=== PATIENT | male | born 1985 | race Caucasian/White ===

== ENCOUNTER 2018-06-19 13:28 | Inpatient (IN) | payer OTHER ==
[~2018-06-19] VITALS: Ht 185.4 cm; Wt 88.6 kg
[~2018-06-19 13:28] MED LIST: BUPRENORPHIN-N1 EACH SL; CITA20 PO; Cleocin HCl150 MG PO; Doxycycline Hy100 MG PO; LEVE500 PO
[2018-06-19] MEDS ORDERED: GABA300 PO (13:46)
[2018-06-19] MEDS ORDERED: CLON.1 PO (13:48)
[2018-06-19] MEDS ORDERED: THERA1 EACH PO (13:54)
[2018-06-19] MEDS ORDERED: FOLI400 PO (13:54)
[2018-06-19] MEDS ORDERED: MELATONIN5 M1 PO (13:55)
[2018-06-19] MEDS ORDERED: CHLO25 PO (13:57)
[2018-06-19] MEDS ORDERED: LORA1 PO (13:58)
[2018-06-19 14:43] LABS: BASOPHILS ABSOLUTE AUTO 0.04 K/mm3 (0.00-0.23); BASOPHILS PERCENT AUTO 0 % (0-2); EOSINOPHILS ABSOLUTE AUTO 0.08 K/mm3 (0.00-0.68); EOSINOPHILS PERCENT AUTO 1 % (0-6); Hematocrit 43.1 % (37.0-53.0); Hemoglobin 14.6 g/dL (13.5-17.5); IMMATURE GRAN ABSOLUTE AUTO 0.11 K/mm3 (0.00-0.10); IMMATURE GRAN PERCENT AUTO 1 % (0-1); LYMPHOCYTES ABSOLUTE AUTO 1.23 K/mm3 (0.84-5.20); LYMPHOCYTES PERCENT AUTO 10 % (21-46); MONOCYTES PERCENT AUTO 4 % (4-13); Mean Corpuscular HGB 33.1 pg (26.0-34.0); Mean Corpuscular HGB Conc 33.9 g/dL (31.5-36.5); Mean Corpuscular Volume 98 fL (80-100); Mean Platelet Volume 10.5 fL (9.1-12.4); NEUTROPHILS ABSOLUTE AUTO 10.14 K/mm3 (1.96-9.15); NEUTROPHILS PERCENT AUTO 84 % (41-73); Platelet Count 301 K/mm3 (150-400); RDW Coefficient Variation 13.3 % (11.7-14.2); RDW Standard Deviation 47.9 fL (35.1-46.3); Red Blood Cell Count 4.41 M/mm3 (4.30-5.90)
[2018-06-19 14:51] LABS: Alanine Aminotransfer (ALT/SGP 29 U/L (12-78); Albumin, Blood 3.7 g/dL (3.4-5.0); Alk Phos 71 U/L (50-136); Anion Gap 6 mmol/L (6-16); Aspartate Aminotrans (AST/SGOT 23 U/L (12-37); Bilirubin, Total 0.9 mg/dL (0.1-1.0); Blood Urea Nitrogen 12 mg/dL (8-24); Bun/Creatinine Ratio 16.6 (12.0-20.0); CO2, Blood 28 mmol/L (21-32); Calcium, Blood 9.2 mg/dL (8.5-10.1); Chloride, Blood 106 mmol/L (98-108); Creatinine, Blood 0.72 mg/dL (0.60-1.20); Globulin, Blood 3.7 g/dL (2.2-4.0); Glomerular Filtration Rate >60 (60-); Glucose, Blood 179 mg/dL (70-99); Magnesium, Blood 2.1 mg/dL (1.6-2.4); Potassium, Blood 4.2 mmol/L (3.5-5.5); Sodium, Blood 140 mmol/L (136-145); Total Protein, Blood 7.4 g/dL (6.4-8.2)
--- NOTE | 2018-06-19 18:15 | NUR ---
ADMIT: PT ARRIVED TO ICU, ALERT, ORIENTED TO PERSON AND TIME, PLACE WITH HARD THINKING. PT HAS VERY SPORADIC MOVEMENTS, REPEATEDLY SITTING UP SUDDENLY OR HIS ARMS JERKING BUT WAS ALERT AT THAT TIME. RIGHT BEFORE PLACING A POWERGLIDE PT HAD A SEIZURE FOR ABOUT 15 SECONDS WITH FULL BODY CONVULSIONS, MORE ATIVAN GIVEN. PT WAS POST ICTAL FOR ABOUT 5 MINUTES AFTER BUT THEN CAME BACK AROUND AND RESUMED THE PREVIOUS SPORADIC MOVEMENTS. POWERGLIDE WAS PLACED, BUT PT KEEPS TRYING TO GET OUT OF BED, THRASHING HIS BODY, BANGING HSI HEAD. PT IS VERY PLEASANT AND DOESN'T SEEM TO BE ABLE TO CONTROL HIS BODY MOVEMENTS. ORDER FOR PRECEDEX RECEIVED FROM DR. TREJO TO TRY AND HELP CONTROL PT'S MOVEMENTS, BUT PT WAS STARTING TO PULL AT ALL OF HIS CORDS AND IVS, TRYING TO BITE THEM THINKING THEY WERE FOOD. PT PLACED IN TOUGH CUFFS, WRIST RESTRAINTS BECAUSE HE IS VERY STRONG AND WOULD RIP THROUGH THE SOFT RESTRAINTS. NOW WITH ATIVAN AND PRECEDEX PT APPEARS GROGGY, BUT IS STILL MOVING CONSTANTLY IN THE BED WITH SOME SPORADIC MOVEMENTS. DR. YODER INFORMED OF CONSULT.
[2018-06-19 18:16] LABS: BASOPHILS ABSOLUTE AUTO 0.03 K/mm3 (0.00-0.23); BASOPHILS PERCENT AUTO 0 % (0-2); EOSINOPHILS ABSOLUTE AUTO 0.06 K/mm3 (0.00-0.68); EOSINOPHILS PERCENT AUTO 1 % (0-6); Hematocrit 39.8 % (37.0-53.0); Hemoglobin 13.5 g/dL (13.5-17.5); IMMATURE GRAN ABSOLUTE AUTO 0.05 K/mm3 (0.00-0.10); IMMATURE GRAN PERCENT AUTO 1 % (0-1); LYMPHOCYTES ABSOLUTE AUTO 1.65 K/mm3 (0.84-5.20); LYMPHOCYTES PERCENT AUTO 16 % (21-46); MONOCYTES ABSOLUTE AUTO 0.51 K/mm3 (0.16-1.47); MONOCYTES PERCENT AUTO 5 % (4-13); Mean Corpuscular HGB 32.8 pg (26.0-34.0); Mean Corpuscular HGB Conc 33.9 g/dL (31.5-36.5); Mean Corpuscular Volume 97 fL (80-100); Mean Platelet Volume 10.6 fL (9.1-12.4); NEUTROPHILS ABSOLUTE AUTO 7.95 K/mm3 (1.96-9.15); NEUTROPHILS PERCENT AUTO 78 % (41-73); Platelet Count 293 K/mm3 (150-400); RDW Coefficient Variation 13.2 % (11.7-14.2); RDW Standard Deviation 47.8 fL (35.1-46.3); Red Blood Cell Count 4.12 M/mm3 (4.30-5.90); White Blood Cell Count 10.25 K/mm3 (4.00-11.30)
[2018-06-19 18:38] LABS: Magnesium, Blood 2.1 mg/dL (1.6-2.4)
[2018-06-19 18:41] LABS: Amylase, Blood 32 U/L (25-115); Ethanol (Alcohol), Blood, Med <3 mg/dL
[2018-06-19 18:49] LABS: Alanine Aminotransfer (ALT/SGP 26 U/L (12-78); Albumin, Blood 3.5 g/dL (3.4-5.0); Alk Phos 66 U/L (50-136); Anion Gap 8 mmol/L (6-16); Aspartate Aminotrans (AST/SGOT 21 U/L (12-37); Bilirubin, Total 0.5 mg/dL (0.1-1.0); Blood Urea Nitrogen 12 mg/dL (8-24); Bun/Creatinine Ratio 14.6 (12.0-20.0); CO2, Blood 27 mmol/L (21-32); Calcium, Blood 8.8 mg/dL (8.5-10.1); Chloride, Blood 105 mmol/L (98-108); Creatinine, Blood 0.82 mg/dL (0.60-1.20); Globulin, Blood 3.5 g/dL (2.2-4.0); Glomerular Filtration Rate >60 (60-); Glucose, Blood 125 mg/dL (70-99); Phosphorus, Blood 3.6 mg/dL (2.5-4.9); Potassium, Blood 3.9 mmol/L (3.5-5.5); Sodium, Blood 140 mmol/L (136-145); Thyroid Stimulating Hormone 0.065 uIU/mL (0.360-4.800); Troponin I <0.015 ng/mL (0.000-0.040)
--- NOTE | 2018-06-19 19:05 | NUR ---
INTUBATE: DR. YODER HERE TO SEE PT. DESPITE PRECEDEX GTT AND ATIVAN PT IS STILL THRASHING IN BED, PULLING AT THE RESTRAINTS. HIS EYES ARE CLOSED NOW, BUT HE CONTINUES TO THRASH. PT'S HR HAS STARTED TO DECLINE WITH THE PRECEDEX WELL WITH IT NOW IN THE 50S. PRECEDEX STOPPED AND DECISION MADE WITH DR. YODER TO INTUBATE TO GET PT THROUGH THE WITHDRAWALS. RT NOTIFIED. PT GIVEN 10MG VERSED, 300MG PROPOFOL, AND 200MG SUCCINYLCHOLINE THROUGHOUT THE INTUBATION AND RIGHT AFTER. PT INTUBATED AT 1839 WITH 8.0 TUBE AND 25CM AT THE LIP. ORDER RECEIVED FROM DR. YODER TO PLACE PICC LINE. PICC PLACED BY HARPER ROACH. OG AND CATHETER PLACED PER DR. YODER. XR ORDERED TO CONFIRM PLACEMENT OF EVERYTHING. REPORT GIVEN TO HARPER GAUTHIER.
--- NOTE | 2018-06-19 19:11 | NUR ---
PT'S FATHER, DAMION, NOTIFIED OF INTUBATION. PT HAD GIVEN PERMISSION TO GIVE INFORMATION TO HIS PARENTS BEFORE HE WAS INTUBATED.
[2018-06-19 19:37] LABS: Source, Urine Catheter
[2018-06-19 19:52] LABS: Bilirubin, Urine Neg (Neg); Blood, Urine Neg (Neg); Glucose Qualitative, Urine Neg (Neg); Ketones, Urine 1+ (Neg); Leukocyte Esterase, Urine Neg (Neg); Nitrite, Urine Neg (Neg); Protein, Urine 1+ (Neg); Urobilinogen, Urine NORM (Normal)
[2018-06-19 19:58] LABS: Appearance, Urine Clear (Clear); Color, Urine Yellow (P-Yellow)
[2018-06-19 20:02] LABS: PCO2 Arterial 40.9 mmHg (35-45); PO2 Arterial 168 mmHg (80-100); pH Blood Arterial 7.43 (7.35-7.45)
--- NOTE | 2018-06-19 21:00 | NUR ---
ASSUMED PT CARE AT 1915 PT RECENTLY INTUBATED WITH ETT 8.0 AND 25CM AT THE TEETH. VENT SETTINGS: AC 16, TV 500, PEEP 5, FIO2 100% WITH OXYGEN SATURATIONS 100%. PROPOFOL INFUSING AT 40MCG/KG/MIN. PRECEDEX ON STANDBY D/T LOW HR 30-40'S. NEW ORDERS FOR FENTANYL AND VERSED GTTS; WAITING ON DELIVERY FROM PHARMACY. DOC RN AT BEDSIDE PLACING PICC LINE TO LEFT UPPER EXTREMITY. CXR COMPLETED TO CONFIRM PLACEMENT OF PICC AND RECENT INTUBATION; DR. YODER READ AND GAVE ORDERS TO ADVANCE ETT BY 2CM; CALLED RT AUGUSTIN WHO ADVANCED PER DR. YODER'S ORDERS. DR. YODER SUGGESTED PULLING PICC OUT BY 2CM, BUT ASKED CARMINE VANG RN, HER OPINION WHO STATED NOT TO BOTHER UNLESS PT HAS ANY ECTOPI; DR. YODER AGREED. PT ISN'T HAVING ANY ECTOPI, BUT CAN'T PULL ANY BLOOD BACK EITHER; CONVERSED WITH CARMINE HERNANDEZ RN WHO STATED TO GO AHEAD AN PULL BACK THE 2CM. DR. YODER ADVISED TO GIVE PHENERGAN 12.5-25MG Q4H PRN TO ALSO HELP WITH SEDATION; OBTAINED PHENERGAN TO ADMINISTER WITH OTHER TUBE MEDS; HOWEVER, PRIOR TO ADMINISTERING PT HAD THREE EPISODES OF UNDIGESTED EMESIS AROUND ETT; ORAL SUCTION PERFORMED AND PT HOOKED TO INTERMITTENT SUCTION. PHENERGAN ADMINISTERED AND TUBE MEDS HELD. ORDERS FROM DR. YODER TO CHANGE ATIVAN PT TO IV. WILL CONTINUE TITRATING SEDATIVE MEDICATIONS UNTIL ADEQUATE SEDATION IS ACHIEVED.
[2018-06-19 23:26] LABS: U Amphetamine Screen Not Detected; U Barbituate Screen Not Detected; U Benzodiazapine Screen DETECTED; U Buprenorphine Screen Not Detected; U Cannabinoids Screen Not Detected; U Cocaine Screen Not Detected; U Methadone Screen Not Detected; U Methamphetamine Screen Not Detected; U Opiates Screen DETECTED; U Oxycodone Screen Not Detected; U Phencyclidine Screen Not Detected; U Propoxyphene Screen Not Detected
[2018-06-20 04:03] LABS: Hematocrit 37.6 % (37.0-53.0); Hemoglobin 12.7 g/dL (13.5-17.5); Mean Corpuscular HGB 32.6 pg (26.0-34.0); Mean Corpuscular HGB Conc 33.8 g/dL (31.5-36.5); Mean Corpuscular Volume 97 fL (80-100); Mean Platelet Volume 10.3 fL (9.1-12.4); Platelet Count 235 K/mm3 (150-400); RDW Coefficient Variation 13.4 % (11.7-14.2); RDW Standard Deviation 47.8 fL (35.1-46.3); Red Blood Cell Count 3.89 M/mm3 (4.30-5.90); White Blood Cell Count 7.76 K/mm3 (4.00-11.30)
[2018-06-20 04:20] LABS: Albumin, Blood 3.3 g/dL (3.4-5.0); Anion Gap 8 mmol/L (6-16); Blood Urea Nitrogen 11 mg/dL (8-24); Bun/Creatinine Ratio 15.1 (12.0-20.0); CO2, Blood 27 mmol/L (21-32); Calcium, Blood 8.3 mg/dL (8.5-10.1); Chloride, Blood 107 mmol/L (98-108); Creatinine, Blood 0.73 mg/dL (0.60-1.20); Glomerular Filtration Rate >60 (60-); Glucose, Blood 111 mg/dL (70-99); Magnesium, Blood 2.4 mg/dL (1.6-2.4); Potassium, Blood 3.5 mmol/L (3.5-5.5); Sodium, Blood 142 mmol/L (136-145)
--- NOTE | 2018-06-20 06:08 | NUR ---
END OF SHIFT SUMMARY PT REMAINS INTUBATED AND SEDATED. VENT SETTINGS: AC 14, TV 500, PEEP 5, FIO2 30%, OXYGEN SATURATIONS 99%. ADEQUATE SEDATION ACHIEVED WITH FENTANYL AT 100MCG/HR, VERSED AT 7MG/HR, AND PROPOFOL AT 30MCG/KG/MIN; PT STILL ABLE TO RESPOND TO NOXIOUS STIMULI. MEDICATED WITH PHENERGAN TWICE AND ATIVAN SCHEDULED Q6; NO MORE EPISODES OF EMESIS. PT IS VERY DIAPHORETIC. NO SEIZURE ACTIVITY THIS SHIFT. LUNG SOUNDS REMAIN COARSE RHONCHI T/O. SINUS ARRHYTHMIA NOTED WITH BRADYCARDIA; HR 40-60'S. BLOOD PRESSURES HAVE REMAINED STABLE; SBP 130-160'S. PT'S MOTHER CALLED FOR AN UPDATE LAST NIGHT AND STATED THEY WERE GOING TO MAKE IT UP SOMETIME TODAY. PT DOES NOT APPEAR TO BE IN ANY DISTRESS AT THIS TIME.
--- NOTE | 2018-06-20 07:41 | NUR ---
ASSUMED CARE ASSUMED CARE OF PT AT 0700. REPORT RECEIVED FROM HARPER GAUTHIER. PT INTUBATED, VENT SETTINGS AC 14, TV 500, PEEP 5, FiO2 30%, ACTUAL RR 14-20'S. COPIOUS ORAL SECRETIONS BEING SUCTIONED AND SCANT ET SECRETIONS. LUNG SOUNDS COARSE T/O. PT AGITATED WITH ANY TYPE OF STIMULUS, INCLUDING VOICES IN ROOM AND LIGHT TOUCH, BECOMES VERY AGITATED WITH CARE BUT SETTLES ONCE LEFT ALONE. PT DIAPHORETIC. PT SEDATED WITH PROPOFOL AT 30MCG/KG, VERSED 7MG/HR, AND FENTANYL 100 MCG/HR. PT HAS OG TUBE TO LOW INT WALL SUCTION R/T VOMITING AROUND ET TUBE ON NOC SHIFT - MINIMAL OUTPUT. PT RECEIVING PHENERGAN FOR NAUSEA, SEDATION ADJUNCT Q4H. PT HAS TEMP BLANKENSHIP CATH IN PLACE DRAINING YELLOW URINE TO GRAVITY. PICC LINE TO HARISH INFUSING ALL GTT'S, INCLUDING LR AT 75ML/HR. ROXY SOFT WRIST RESTRAINTS IN PLACE TO PROTECT LINES, TUBES. WILL CONTINUE TO MONITOR PT CLOSELY.
--- NOTE | 2018-06-20 09:02 | NUR ---
OG TUBE NOT PATENT. REMOVED AND NOTED TO BE KINKED. REPLACED WITH 18FR TUBE. PLACEMENT VERIFIED BY AUSCULTATION OVER STOMACH AND RETURN OF GASTRIC CONTENTS. AM MEDS ADMINISTERED VIA TUBE.
--- NOTE | 2018-06-20 09:34 | NUR ---
DR. GARZONTRATE ROUNDED ON PT. NO NEW ORDERS RECEIVED AT THIS TIME. PLAN FOR MANAGEMENT PER DR. LAGOS/HIGHWAY PAINTER HELPER.
--- NOTE | 2018-06-20 10:32 | NUR ---
DR. DEMOND LAGOS ROUNDED ON PT. PLAN TO DISCONTINUE VERSED GTT AND USE ATIVAN PUSHES PRN AND TITRATE PROPOFOL NEEDED FOR SEDATION. PLAN TO HAVE OG TO INT SUCTION FOR THE DAY R/T EMESIS OVERNIGHT, MAY START TUBE FEEDING TOMORROW IF ABLE. NO ADDITIONAL ORDERS RECEIVED AT THIS TIME.
--- NOTE | 2018-06-20 17:16 | NUR ---
SHIFT SUMMARY PT REMAINS INTUBATED AND SEDATED. VERSED GTT WAS DC'D THIS SHIFT. PT CALM WHEN LEFT UNDISTURBED, BECOMES VERY AGITATED WITH REPOSITIONING AND ORAL CARE. PT CURRENTLY SEDATED WITH PROPOFOL 45MCG/KG AND FENTANYL GTT 100 MCG/HR. LR CONTINUES TO INFUSE AT 75ML/HR. OG TUBE TO LOW INT WALL SUCTION WITH SMALL AMT OF BRIGHT YELLOW LIQUID RETURN. BLANKENSHIP REMAINS PATENT AND DRAINING PALE GREEN URINE TO GRAVITY. ROXY SOFT WRIST RESTRAINTS REMAIN IN PLACE TO PROTECT LINES, TUBES. WILL CONTINUE TO MONITOR PT CLOSELY AND GIVE HANDOFF REPORT TO ONCOMING SHIFT.
--- NOTE | 2018-06-20 20:14 | NUR ---
ASSUMED CARE PT IS CURRENTLY INTUBATED ON VENT AC14/500/5/25%. CURRENT GTTS: FENTANYL 100MCG/HR, PROPOFOL 45MCG/KG/MIN, AND LR 75ML/HR. PUPILS ARE 7s AND REACT BRISKLY TO LIGHT. PT HAS A SAS OF 3 AT THIS TIME.
[2018-06-21 04:30] LABS: BASOPHILS ABSOLUTE AUTO 0.03 K/mm3 (0.00-0.23); BASOPHILS PERCENT AUTO 0 % (0-2); EOSINOPHILS ABSOLUTE AUTO 0.18 K/mm3 (0.00-0.68); EOSINOPHILS PERCENT AUTO 2 % (0-6); Hemoglobin 12.2 g/dL (13.5-17.5); IMMATURE GRAN ABSOLUTE AUTO 0.03 K/mm3 (0.00-0.10); IMMATURE GRAN PERCENT AUTO 0 % (0-1); LYMPHOCYTES PERCENT AUTO 16 % (21-46); MONOCYTES ABSOLUTE AUTO 0.59 K/mm3 (0.16-1.47); MONOCYTES PERCENT AUTO 7 % (4-13); Mean Corpuscular HGB 34.6 pg (26.0-34.0); Mean Corpuscular HGB Conc 34.9 g/dL (31.5-36.5); Mean Corpuscular Volume 99 fL (80-100); Mean Platelet Volume 10.4 fL (9.1-12.4); NEUTROPHILS PERCENT AUTO 74 % (41-73); Platelet Count 223 K/mm3 (150-400); RDW Coefficient Variation 13.5 % (11.7-14.2); RDW Standard Deviation 49.3 fL (35.1-46.3); Red Blood Cell Count 3.53 M/mm3 (4.30-5.90); White Blood Cell Count 8.63 K/mm3 (4.00-11.30)
--- NOTE | 2018-06-21 04:42 | NUR ---
SEDATION VACATION PROPOFOL TITRATED DOWN TO 35MCG/KG/MIN FOR SEDATION VACATION. PT BECAME AGITATED AND ATTEMPTED TO SIT UP; COUGHING SO HARD THAT HE WOULD VOMIT, GASTRIC SECRETIONS FOUND IN MOUTH; PULLING ON RESTRAINTS AND BECAME HYPERTENSIVE. PT DID RESPOND TO VERBAL STIMULI AND OPENED EYES SLIGHTLY. PT WAS ABLE TO SHAKE HIS HEAD AND NODDED IN AGGREEMENT TO BEING ASKED IF HE WAS ANXIOUS. PROPOFOL RESUMED AT 50MCG/KG/MIN.
--- NOTE | 2018-06-21 05:16 | NUR ---
COUGHING AND VOMITING PT STARTED COUGHING VERY HARSLY TO THE POINT OF VOMITING UP PAST HIS OG TUBE. VOMIT WAS BILE/YELLOW COLORED AND CAME OUT EXCESSIVELY. OG ON CONTINUOUS LOW SUCTION NOW AND MEDICATED FOR NAUSEA (PHENERGAN) PER ORDERS.
[2018-06-21 05:24] LABS: PCO2 Arterial 35.3 mmHg (35-45); PO2 Arterial 85.6 mmHg (80-100); pH Blood Arterial 7.48 (7.35-7.45)
[2018-06-21 05:54] LABS: Anion Gap 10 mmol/L (6-16); Blood Urea Nitrogen 7 mg/dL (8-24); CO2, Blood 22 mmol/L (21-32); Chloride, Blood 109 mmol/L (98-108); Glucose, Blood 100 mg/dL (70-99); Potassium, Blood 3.5 mmol/L (3.5-5.5); Sodium, Blood 141 mmol/L (136-145)
[2018-06-21 05:55] LABS: Alanine Aminotransfer (ALT/SGP 21 U/L (12-78); Albumin/Globulin Ratio 1.1 (0.8-1.8); Alk Phos 55 U/L (50-136); Aspartate Aminotrans (AST/SGOT 18 U/L (12-37); Bilirubin, Total 0.5 mg/dL (0.1-1.0); Calcium, Blood 7.3 mg/dL (8.5-10.1); Globulin, Blood 2.8 g/dL (2.2-4.0); Glomerular Filtration Rate >60 (60-); Phosphorus, Blood 3.6 mg/dL (2.5-4.9); Total Protein, Blood 5.8 g/dL (6.4-8.2)
--- NOTE | 2018-06-21 06:25 | NUR ---
SHIFT SUMMARY PT REMAINS ON VENT AC 14/500/5/25%. CURRENT GTTS: PROPOFOL AT 50MCG/KG/MIN, FENTANYL AT 100MCG/KG/MIN, AND LR AT 75ML/HR. PT IS RESPONSIVE TO PAIN AND VERBAL STIMULI WITH SEDATION LOWERED; PT ANSWERED QUESTION "ARE YOU FEELING ANXIOUS?" WITH A NOD. PT HAS FLUCTUATING PUPIL SIZES: FROM 7 AT START OF SHIFT TO 2 AT 0000, AND FINALLY TO A 5 AT 0400; REACTS BRISKLY TO LIGHT. PT TOLERATED 2-4MG BOLUSES OF ATIVAN WELL AND REQUIRED BOLUSES PRIOR TO ORAL CARE AND BATHING. PT HAD MANY EPISODES OF HARSH COUGHING WHICH RESULTED IN COPIOUS ORAL SECRETIONS AND GASTRIC SECRETIONS (SEE NOTE ON VOMITING).
--- NOTE | 2018-06-21 07:26 | NUR ---
ASSUMED CARE: PT IN BED INTUBATED, SETTINGS AC 14/500/5/25%. PROPOFOL AT 50MCG/KG/MIN, FENTANYL SCHOOL SERVICES OFFICER RUNNING, BILATERAL WRIST RESTRAINTS. PT APPEARS TO BE HYPERTENSIVE AT TIMES, INSTRUCTIONAL LEADER REPORT EASILY AGITATED WTIH REPOSITIONING AND ACTIVITY. RT AT BEDSIDE.
--- NOTE | 2018-06-21 07:47 | NUR ---
RT STATES EMESIS NOTED AROUND OG TUBE. PLAN TO DISCUSS OG PLACEMENT WITH INTENSIVITS. DR ISAACS AT BEDSIDE AND AWARE THAT PT HAS TEMP AT THIS TIME. COOL RAGS AND FAN PLACED. WILL MEDICATE WITH TYLENOL AND CONTINUE TO MONITOR. DR TO REVIEW CHART FOR FURTHER EXPLANATION OF FEVER
--- NOTE | 2018-06-21 08:19 | NUR ---
PT GIVEN TYLENOL PER OG FOR FEVER. SUCTION OFF FOR 15 MINUTES AND PT BEGAN VOMITING. RESTARTED SUCTION. LAB IN ROOM DOING CULTURES AT THIS TIME.
--- NOTE | 2018-06-21 09:15 | NUR ---
DR LAGOS VIEWED XRAY FOR NG TUBE, STATES NO KINK, SUGGESTED TO PULL BACK NG A FEW CENTIMETERS TO PUT DIRECTLY IN STOMACH. PT CONTINUES TO BE AGITATED AND NOT FOLLOWING DIRECTIONS. ATTEMPT TO GIVE SEDATION VACATION RESULTED IN INCREASED AGITATION AND THRASHING OF ARMS AND LEGS IN BED. STAFF HAVE BEEN WARNED THAT PT DRIVES KNEES UP AND PRESENT A RISK TO STAFF. REMAINS ON 50MCG/KG/MIN PROPOFOL AT THIS TIME.
--- NOTE | 2018-06-21 10:01 | NUR ---
REVIEWED BANK REPRESENTATIVE'S HEAD TO TOE ASSESSMENT. LUNG SOUNDS CLEAR WITH SOME COARSENESS NOTED IN BASES. INCREASED PT'S PROPOFOL TO 60MCG/KG/MIN DUE TO PT CONTINUING TO BE AGITATED WITH 4MG ATIVAN GIVEN. SWINGING LEGS OFF SIDE OF BED. WILL CONTINUE TO MONITOR
--- NOTE | 2018-06-21 10:40 | NUR ---
UPDATED DR LAGOS THAT PT HAS BEEN GIVEN 4MG ATIVAN AND PROPOFOL INCREASED TO 60. DR SUGGESTED TO GIVE 4MG EVERY HOUR FOR A FEW HOURS TO LET MED BUILD UP.
--- NOTE | 2018-06-21 13:31 | NUR ---
PT HAS BEEN GIVEN TYLENOL SUPPOSITORY WITH CONTINUED FEVER NOTED WITH VERY LITTLE DECREASE AFTER TYLENOL GIVEN. DISCUSSED WITH CASHIER GENERAL. COOLING BLANKET APPLIED
--- NOTE | 2018-06-21 14:03 | NUR ---
PT'S TEMP CONTINUES TO ELEVATE. COLD RAG TO BACK OF NECK AND FOREHEAD. COOLING BLANKET APPLIED. WILL ADMINISTER TYLENOL SUPPOSITORY AGAIN. RT STATES THAT EMESIS ASPIRATE NOTED WITH ET SUCTION. DR LAGOS AWARE
--- NOTE | 2018-06-21 18:36 | NUR ---
SHIFT SUMMARY: PT REMAINS ON VENT AC /5/25%. PROPOFOL AT 65MCG/KG/MIN AND FENTANYL GTT AT 100MCG/HR. REQUIRING ATIVAN Q2 FOR AGITATION. COOLING BLANKET IN PLACE AND ICE PACKS FOR PT'S FEVER. OG REMAINS AT LIS WITH GREEN/BROWN SECRETIONS NOTED FROM IT. RESTRAINTS AND BLANKENSHIP IN PLACE. NO FURTHER NEEDS OR CONCERNS AT THIS TIME.
--- NOTE | 2018-06-21 18:42 | NUR ---
SHIFT SUMMARY: PT REMAINS ON VENT AC /5/25%. PROPROFOL AT 65 MCG/KG/MIN AND FENTANYL AT 100 MCG/KG/MIN. PT APPEARS LESS AGITATED SINCE INCREASING PROPRFOL. ICE PACKS, COOLING BLANKET, AND TYLENOL GIVEN TO LOWER TEMP. FEVER LOWERED FROM 103 TO 100.4. PT CURRENTLY CALM. NO CONCERNS OR NEEDS AT THIS TIME.
--- NOTE | 2018-06-21 19:37 | NUR ---
ASSUMED CARE PT REMAINS ON VENT AC10/500/5/25%. CURRENT GTTS: PROPOFOL 65MCG/KG/MIN, FENTANYL 100MCG/HR, AND LR 75ML/HR. PT HAS A CNVI OF 1; APPEARING RESTLESS. GOAL FOR NIGHT IS TO KEEP JHONATAN ADEQUETLY SEDATED SO HE CAN GET MUCH REST POSSIBLE.
[2018-06-22 04:44] LABS: BASOPHILS ABSOLUTE AUTO 0.03 K/mm3 (0.00-0.23); BASOPHILS PERCENT AUTO 0 % (0-2); EOSINOPHILS ABSOLUTE AUTO 0.08 K/mm3 (0.00-0.68); EOSINOPHILS PERCENT AUTO 1 % (0-6); Hematocrit 42.8 % (37.0-53.0); Hemoglobin 14.4 g/dL (13.5-17.5); IMMATURE GRAN ABSOLUTE AUTO 0.04 K/mm3 (0.00-0.10); IMMATURE GRAN PERCENT AUTO 0 % (0-1); LYMPHOCYTES ABSOLUTE AUTO 1.12 K/mm3 (0.84-5.20); LYMPHOCYTES PERCENT AUTO 10 % (21-46); MONOCYTES ABSOLUTE AUTO 0.68 K/mm3 (0.16-1.47); MONOCYTES PERCENT AUTO 6 % (4-13); Mean Corpuscular HGB 32.8 pg (26.0-34.0); Mean Corpuscular HGB Conc 33.6 g/dL (31.5-36.5); Mean Corpuscular Volume 98 fL (80-100); Mean Platelet Volume 10.1 fL (9.1-12.4); NEUTROPHILS ABSOLUTE AUTO 8.93 K/mm3 (1.96-9.15); NEUTROPHILS PERCENT AUTO 82 % (41-73); Platelet Count 194 K/mm3 (150-400); RDW Coefficient Variation 13.5 % (11.7-14.2); RDW Standard Deviation 48.8 fL (35.1-46.3); Red Blood Cell Count 4.39 M/mm3 (4.30-5.90); White Blood Cell Count 10.88 K/mm3 (4.00-11.30)
[2018-06-22 05:06] LABS: Anion Gap 8 mmol/L (6-16); Blood Urea Nitrogen 8 mg/dL (8-24); Bun/Creatinine Ratio 10.4 (12.0-20.0); CO2, Blood 26 mmol/L (21-32); Calcium, Blood 8.1 mg/dL (8.5-10.1); Chloride, Blood 111 mmol/L (98-108); Creatinine, Blood 0.77 mg/dL (0.60-1.20); Glomerular Filtration Rate >60 (60-); Glucose, Blood 110 mg/dL (70-99); Phosphorus, Blood 3.5 mg/dL (2.5-4.9); Potassium, Blood 3.3 mmol/L (3.5-5.5); Sodium, Blood 145 mmol/L (136-145)
[2018-06-22 05:30] LABS: PO2 Arterial 72.6 mmHg (80-100); pH Blood Arterial 7.48 (7.35-7.45)
--- NOTE | 2018-06-22 06:45 | NUR ---
SHIFT SUMMARY PT REMAINS ON VENT AC10/500/5/25%. CURRENT GTTS: PROPOFOL 65MCG/KG/MIN, LR 75ML/HR, AND FENTANYL 100MCG/HR. PT RESPONDS TO PAIN AND BECOMES AGITATED WITH ORAL CARE. WHEN PROPOFOL WEANED DOWN TO 50 PT WOKE UP AND COULD NOD IN RESPONSE TO THE QUESTIONS "ARE YOU FEELING ANXIOUS? ARE YOU IN PAIN?" PT IS MEDICATED WITH PRN BOLUSES OF ATIVAN AND FENTANYL; 2-4MG ATIVAN WORKS EXCELLENT. ANY COARSE LUNG SOUNDS CLEAR UP WITH COUGHS. PT PRODUCED LARGRE AMOUNTS OF THICK, BORGES/GREEN-YELLOW TRACHEAL SECRETIONS OVERNIGHT; WHEN UP TO THIS POINT MAJORITY OF SECRETIONS WERE THIN, CLEAR, AND ORAL. ICE PACKS AND PAD TAKEN OFF, WITH FAN POINTED AT HEAD - TEMPERATURE HAS BEEN LABILE.
--- NOTE | 2018-06-22 07:37 | NUR ---
ASSUMED CARE: PT REMAIN ON VENT AC /5/25%. PROPROFOL AT 65MCG/KG/MIN AND FENTANYL 100MCG/KG/MIN. BILATERAL WRIST RESTRAINTS IN PLACE. OG ON INERMITTENT SUCTION. POTASSIUM AT 3.3 THIS MORNING. WILL NOTIFY FOR REPLACEMENT. PT APPEARS CALM AT THIS TIME.
--- NOTE | 2018-06-22 07:43 | NUR ---
DR. ISAACS CAME BY TO CHECK ON PT. DISCUSSED POTASSIUM LEVEL. SAID SHE WILL PUT IN ORDER FOR REPLACEMENT.
--- NOTE | 2018-06-22 09:52 | NUR ---
PT DID NOT HAVE GAG REFLEX WHEN ASSESED DURING ORAL CARE. ALSO DID NOT RESPOND TO PAIN. TURNED DOWN PROPROFOL TO 50 MCG/KG AND GAG REFLEX RETURNED.
--- NOTE | 2018-06-22 12:11 | NUR ---
PT'S MOM CAME TO VISIT. TURNED PROPROFOL DOWN TO 20MCG/KG WHILE MOM WAS VISITING FOR ABOUT 15 MINUTES. PT RESPONDED TO MOMS VOICE AND WAS ABLE TO SQUEEZE HER HAND WHEN CUED. PT DID START TO BEGOME AGITATED. PROPROFOL WAS TURNED BACK UP TO 55MCG/KG/MIN AND ATIVAN WAS GIVEN. PT CALMED DOWN AND IS NOW RESTING. APPEARS COMFORTABLE.
--- NOTE | 2018-06-22 17:33 | NUR ---
SHIFT SUMMARY: PT STILL ON VENT AC 10/500/5/25%. PROPROFOL AT 65MCG/KG/MIN, FENTANYL 75MCG/HR, AND LR 75MLS/HR. TUBE FEEDING STARTED AT 1400, 25MLS/HR. APPEARS TO BE TOLERATING REFEEDING WELL. PT WAS HYPERTENSIVE. MEDICATED WITH PRN HYDRALAZINE. PT IS CALM AND APPEARS COMFORTABLE AT THIS TIME.
--- NOTE | 2018-06-22 18:03 | NUR ---
THIS RN HAS BEEN WITH [employer] THROUGHOUT THE SHIFT AND AGREES WITH ALL CARE PROVIDED AND DOCUMENTATION.
--- NOTE | 2018-06-22 19:30 | NUR ---
ASSUMED CARE OF PT, REPORT RECEIVED AND GTTS VERIFIED. PT IS SEDATED AND INTUBATED 8.0 ETT, 26 CM AT TEETH, LUNGS CLEAR THROUGHOUT, THICK BORGES SPUTUM PRESENT IN SUCTION TUBING, VENT AC 10 TV 450, FIO2 25%, PEEP 5, CURRENT RESP RATE 18-20, SATS HIGH 90S. HRR, SINUS ON MONITOR, RECENTLY MEDICATED FOR HYPERTENSION, WILL MONITOR. ABD SOFT, ACTIVE BOWEL TONES, MINIMAL RESIDUAL LESS THAN 5 ML, VITAL HIGH PROTEIN TO OG TUBE AT 25 ML/HR GOAL RATE OF 45 ML/HR DUE TO INCREASE AT 2200. PICC NOTED TO LEFT UPPER ARM, PROPOFOL AT 65 MCG/KG/MIN, FENTANYL AT 75 MCG/HR, LR AT 75 ML/HR. BLANKENSHIP IN PLACE DRAINING CLEAR GREEN URINE TO GRAVITY. WILL MONITOR.
--- NOTE | 2018-06-23 02:05 | NUR ---
FENTANYL GTT INCREASED TO 100 MCG/HR FOR BEDBATH AND LINEN CHANGE
--- NOTE | 2018-06-23 04:40 | NUR ---
PROPOFOL AND FENTANYL TO STANDBY FOR SPONTANEOUS BREATHING TRIAL.
--- NOTE | 2018-06-23 05:17 | NUR ---
PROPOFOL AND FENTANYL GTT RESUMED, SPONTANEOUS BREATHING TRIAL COMPLETE.
[2018-06-23 05:37] LABS: PO2 Arterial 65.2 mmHg (80-100); pH Blood Arterial 7.45 (7.35-7.45)
[2018-06-23 06:45] LABS: BASOPHILS ABSOLUTE AUTO 0.03 K/mm3 (0.00-0.23); BASOPHILS PERCENT AUTO 0 % (0-2); EOSINOPHILS ABSOLUTE AUTO 0.27 K/mm3 (0.00-0.68); EOSINOPHILS PERCENT AUTO 3 % (0-6); Hematocrit 34.2 % (37.0-53.0); Hemoglobin 11.4 g/dL (13.5-17.5); IMMATURE GRAN ABSOLUTE AUTO 0.06 K/mm3 (0.00-0.10); IMMATURE GRAN PERCENT AUTO 1 % (0-1); LYMPHOCYTES ABSOLUTE AUTO 0.84 K/mm3 (0.84-5.20); LYMPHOCYTES PERCENT AUTO 8 % (21-46); MONOCYTES ABSOLUTE AUTO 0.52 K/mm3 (0.16-1.47); MONOCYTES PERCENT AUTO 5 % (4-13); Mean Corpuscular HGB 32.6 pg (26.0-34.0); Mean Corpuscular HGB Conc 33.3 g/dL (31.5-36.5); Mean Corpuscular Volume 98 fL (80-100); Mean Platelet Volume 10.3 fL (9.1-12.4); NEUTROPHILS ABSOLUTE AUTO 8.38 K/mm3 (1.96-9.15); NEUTROPHILS PERCENT AUTO 83 % (41-73); Platelet Count 207 K/mm3 (150-400); RDW Coefficient Variation 13.5 % (11.7-14.2); RDW Standard Deviation 48.9 fL (35.1-46.3)
[2018-06-23 06:57] LABS: Albumin, Blood 2.8 g/dL (3.4-5.0); Anion Gap 6 mmol/L (6-16); Blood Urea Nitrogen 7 mg/dL (8-24); Bun/Creatinine Ratio 9.9 (12.0-20.0); CO2, Blood 24 mmol/L (21-32); Calcium, Blood 8.1 mg/dL (8.5-10.1); Chloride, Blood 112 mmol/L (98-108); Glomerular Filtration Rate >60 (60-); Glucose, Blood 125 mg/dL (70-99); Potassium, Blood 3.6 mmol/L (3.5-5.5); Sodium, Blood 142 mmol/L (136-145); Triglycerides 175 mg/dL (30-140)
--- NOTE | 2018-06-23 07:10 | NUR ---
PT REMAINS SEDATED AND INTUBATED THIS AM, PROPOFOL CONTINUES AT 65 MCG/KG/MIN, FENTANYL AT 100 MCG/HR, PT RESPONDS TO VERBAL STIMULI AND IS NOTED TO ATTEMPT TO SIT UP IN BED INTERMITTENTLY, ATIVAN 4 MG IV ADMIN FOR BREAKTHROUGH AGITATION/RESTLESSNESS ADMIN EVERY 2-4 HOURS THIS SHIFT WITH GOOD CONTROL. PT WAS RESTLESS/AGITATED DURING SPONTANEOUS BREATHING TRIAL THIS AM AND WAS NOTED TO APPEAR TO GAG ON ET TUBE, HE DID HAVE A SMALL AMOUNT OF BRIGHT YELLOW EMESIS AROUND OG TUBE, RESIDUALS HAVE BEEN LESS THAN 5 ML THROUGHOUT THIS SHIFT INCLUDING IMMEDIATELY PRIOR TO EMESIS DURING SPONTANEOUS BREATHING TRIAL. PT DID NOD YES WHEN ASKED IF HE HAS A SENSITIVE GAG REFLEX AT BASELINE. LUNGS REMAIN CLEAR THROUGHOUT, SPUTUM CONTINUES THICK, BORGES TO WHITE, SATS MID TO HIGH 90S. INTERMITTENT HYPERTENSION IS NOTED HOWEVER IMPROVES WITH DECREASE IN AGITATION. TUBE FEEDS VITAL HIGH PROTEIN AT 25 ML/HR INITIALLY, TITRATED UP TO 35 ML/HR AT 2200, GOAL RATE OF 45 ML/HR. BLANKENSHIP CATHETER CONTINUES DRAINING GREEN URINE TO GRAVITY.
--- NOTE | 2018-06-23 10:16 | NUR ---
PT BP ELEVATED WITH ACTIVITY BUT DEC. WITH REST. PT ON PROPOFOL GTT AT 65MCG, FENTANYL GTT AT 100MCG AND LR AT 75ML MAINTANACE AND ABX INFUSING. TF VITAL HIGH PROTEIN AT 45ML GOAL AND NO RESIDUALS. PT SOMEWHAT SPONT. RESTLESS AND MOVING SELF BUT SLEEPING WITH ABOVE SEDATION OTHERWISE.
[2018-06-23 11:42] LABS: Triglycerides 169 mg/dL (30-140)
--- NOTE | 2018-06-23 12:30 | NUR ---
PT CONT TO BE RESTLESS AND EXERCISING LEGS UP AND DOWN AND EVEN ON NEW PRECEDEX, REDUCED PROPOFOL AND FENTENYL GTTS. WILL FOLLOW NEW DOSE CHANGES WERE JUST MADE.
--- NOTE | 2018-06-23 16:59 | NUR ---
PT HAS ONLY BEEN CALM INTERMITTENTLY FOR WITH GTTS AT CHARTED LEVELS, BUT WILL THEN SIT UP AND BECOMES QUITE RESTLESS. AT THIS POINT THE LAST CHANGES HAS HELPED TO ASSIST WITH AGITAION LEVELS. PT IS RETURNED TO [id number]. PT HAS TOLERATED TF.
--- NOTE | 2018-06-23 17:52 | NUR ---
PT IS NOW RESTING QUIETLY ON MEDS NOTED. PT I/O NOTED. VSS WITH BP NOTED AND SL ELEVATED. PT IS CALM AND RESTING ON VENTILATER AT THIS TIME. PT TF CONTINUE. RESTRAINTS CHARTED.
--- NOTE | 2018-06-23 19:20 | NUR ---
ASSUMED CARE OF PT, HE REMAINS SEDATED AND INTUBATED, GTTS VERIFIED WITH OFFGOING RN, PROPOFOL AT 20 MCG/KG/MIN, VERSED AT 14 MG/HR, FENTANYL AT 200 MCG/HR, PRECEDEX AT 0.5 MCG/KG/HR, PT DOES OPEN EYES BRIEFLY TO HIS NAME. ETT 8.0, 26 AT LIP, VENT SETTINGS AC 10, TV 500, FIO2 35%, PEEP 5, LUNGS REMAIN CLEAR THROUGHOUT, SATS MID 90S, RATE TEENS. HRR, SINUS ON MONITOR, HYPERTENSION CONTINUES WITH SYSTOLIC PRESSURE 140S, SKIN PWD, PULSES FULL WITH BRISK CAP REFILL. NORMOACTIVE BOWEL TONES PRESENT, ABD SOFT NONTENDER TO PALP, TUBE FEEDS, VITAL HIGH PROTEIN VIA OG TUBE AT GOAL RATE OF 45 ML/HR, RESIDUAL OF 170 ML REFED AT THIS TIME. TEMP PROBE BLANKENSHIP REMAINS IN PLACE, DRAINING CLEAR GREEN URINE TO GRAVITY. PICC REMAINS TO LEFT UPPER ARM, SITE WNL, DRESSING CDI.
[2018-06-24 02:49] LABS: BASOPHILS ABSOLUTE AUTO 0.04 K/mm3 (0.00-0.23); BASOPHILS PERCENT AUTO 1 % (0-2); EOSINOPHILS ABSOLUTE AUTO 0.34 K/mm3 (0.00-0.68); EOSINOPHILS PERCENT AUTO 4 % (0-6); Hematocrit 33.8 % (37.0-53.0); Hemoglobin 11.1 g/dL (13.5-17.5); IMMATURE GRAN ABSOLUTE AUTO 0.04 K/mm3 (0.00-0.10); IMMATURE GRAN PERCENT AUTO 1 % (0-1); LYMPHOCYTES PERCENT AUTO 14 % (21-46); MONOCYTES ABSOLUTE AUTO 0.69 K/mm3 (0.16-1.47); MONOCYTES PERCENT AUTO 8 % (4-13); Mean Corpuscular HGB 32.8 pg (26.0-34.0); Mean Corpuscular HGB Conc 32.8 g/dL (31.5-36.5); Mean Corpuscular Volume 100 fL (80-100); Mean Platelet Volume 10.4 fL (9.1-12.4); NEUTROPHILS PERCENT AUTO 73 % (41-73); Platelet Count 215 K/mm3 (150-400); RDW Coefficient Variation 13.4 % (11.7-14.2); RDW Standard Deviation 50.2 fL (35.1-46.3); Red Blood Cell Count 3.38 M/mm3 (4.30-5.90); White Blood Cell Count 8.71 K/mm3 (4.00-11.30)
[2018-06-24 03:11] LABS: Alanine Aminotransfer (ALT/SGP 27 U/L (12-78); Albumin, Blood 2.7 g/dL (3.4-5.0); Albumin/Globulin Ratio 0.7 (0.8-1.8); Alk Phos 69 U/L (50-136); Anion Gap 7 mmol/L (6-16); Aspartate Aminotrans (AST/SGOT 17 U/L (12-37); Bilirubin, Total 0.7 mg/dL (0.1-1.0); Blood Urea Nitrogen 7 mg/dL (8-24); Bun/Creatinine Ratio 11.8 (12.0-20.0); CO2, Blood 25 mmol/L (21-32); Calcium, Blood 7.9 mg/dL (8.5-10.1); Chloride, Blood 110 mmol/L (98-108); Creatinine, Blood 0.59 mg/dL (0.60-1.20); Globulin, Blood 3.9 g/dL (2.2-4.0); Glomerular Filtration Rate >60 (60-); Glucose, Blood 114 mg/dL (70-99); Magnesium, Blood 2.2 mg/dL (1.6-2.4); Phosphorus, Blood 3.6 mg/dL (2.5-4.9); Potassium, Blood 3.8 mmol/L (3.5-5.5); Sodium, Blood 142 mmol/L (136-145); Total Protein, Blood 6.6 g/dL (6.4-8.2)
--- NOTE | 2018-06-24 04:25 | NUR ---
SPONTANEOUS BREATHING TRIAL PROPOFOL TO STANBY FROM 20 MCG/KG/MIN, VERSED TO STANDBY FROM 14 MG/HR, PRECEDEX INCREASED TO 0.7 MCG/KG/HR, FENTANYL GTT INITIALLY DECREASED TO 100 MCG/HR THEN TO STANDBY AFTER APPROX 10 MINUTES. PT IS AWAKE AND LOOKING AROUND ROOM, HE FOLLOWS DIRECTIONS WELL AND ANSWERS YES/NO QUESTIONS APPROPRIATELY, INCREASED ORAL SECRETIONS ARE NOTED WELL PT ATTEMPT TO SWALLOW. EXPLAINED TO PT THAT ATTEMPTS TO SWALLOW WILL RESULT IN STIMULATION OF GAG REFLEX, HE REDIRECTS WELL AT THIS TIME. EXPLAINED TO PT THAT HEAD MOVEMENT TO LOOK AROUND ROOM MAY RESULT IN ETT MOVEMENT ENOUGH TO STIMULATE GAG REFLEX AND PT ENCOURAGED TO RELAX, HE FOLLOWS DIRECTIONS WELL AT THIS TIME.
--- NOTE | 2018-06-24 06:30 | NUR ---
PT CONTINUES SEDATED AND INTUBATED, FIO2 TITRATED UP TO 45% FOLLOWING INCREASED COUGHING AT MIDNOC PT SATS DECREASED TO 88-89% FOR SEVERAL MINUTES WITHOUT IMPROVEMENT, SATS INCREASED OVER NEXT HOUR AND FIO2 WAS TITRATED DOWN TO 40%, THICK BORGES SECRETIONS CONTINUE TO BE SUCTIONED FROM ETT HOWEVER PT'S LUNG SOUNDS HAVE REMAINED CLEAR AT ASSESSMENTS, PER RT PT DID HAVE SOME EXPIRATORY WHEEZES X 1 AND SHE PROVIDED UDN, LUNG SOUNDS CLEAR POST UDN. TUBE FEEDS CONTINUE, RESIDUALS 170 ML, 60 ML, AND 70 ML, NO VOMITING THIS SHIFT. PT TOLERATED SPONTANEOUS BREATHING TRIAL WELL. URINE COLOR IMPROVED THIS AM. PT REMAINS EASILY AROUSED TO VERBAL STIMULI THROUGHOUT SHIFT.
--- NOTE | 2018-06-24 09:53 | NUR ---
PT ON CURRENT SEDATION SETTINGS IS CALM AND ABLE TO FOLLOW EVEN SIMPLE COMMMANDS WITH THIS SEDATION LEVEL. PT LOOKING AROUND ROOM AND IS ABLE TO COOPERATE. TOLERATING TF AND RESIDUAL ONLY 30ML. VSS AMD PER DR JALLOH, WILL SLOWLLY LOWER SEDATON AT TOLERATED. PT DENIES TO BE HAVING PAIN OR ANY DISTRESS.
--- NOTE | 2018-06-24 11:16 | NUR ---
0930 DR JALLOH CHANGED TO SPONT. 09/12 AT 35% AND IS TOLERATING WELL ON SEDATION DOSES NOTED. RT NOTIFIED.
--- NOTE | 2018-06-24 16:26 | NUR ---
1440 PT HAS BEEN AWAKE FOLLOWING SIMPLE COMMANDS DISPITE MEDICATIONS NOTED. FENTANYL, VERSED, AND PROPOFOL GTTS WERE D/C AND PRECEDEX GTT REMIANS AT 0.6MCG. PT EXTUBATED AT THIS TIME AND PLACE ON 4L NC W/O RESP. DISTRESS BUT DID HAVE STRONG COUGH AND SMALL AMOUNT OF EMESIS. PT REMAINS COOP AND ALERT BUT DOSE HAVE VISIBLE TREMORS AND C/O JOHNSON MILD IN NATURE. VS NOTED WITH BP CONT. TO BE ELEVATED AND PO MEDS TO FOLLOW.
--- NOTE | 2018-06-24 16:33 | NUR ---
PT CIWA NOTED AND WILL FOLLOW WITH ATIVAN TO ASSIST FENTANYL DOSING.
--- NOTE | 2018-06-24 18:09 | NUR ---
PT IS CURRENTLY CALM AND RESTING W/O CONTINUAL MOTION AND AGITATION. SATS STABLE ARE VS BP BP ELEVATED. I/O NOTED. PRECEDEX AT 1.4 MCG AND PT IS IN ZAYRA FOR SAFETY. WILL DOCUMENT.
--- NOTE | 2018-06-24 19:30 | NUR ---
ASSUME CARE: REPORT RECIEVED FROM MARITA OFF GOING RN. MONITOR INTACT SHOWING SINUS LONI/SINUS RHYTHM. HEART RATE 50'S-60'S. LUNG SOUNDS COARSE/CLEAR UPPER LOBES WITH DECREASED SOUNDS IN THE BASES. RESPIRATIONS REGULAR AND EASY SPO2 94-97% ABDOMEN SOFT WITH BOWEL SOUNDS FOUR QUADS. BLANKENSHIP PATENT DRAINING GREEN URINE. REPOSITIONS SELF IN BED. VEST ZAYRA INTACT TO PROTECT LINES AND TUBES. PAS TO LOWER EXTREMITIES. NO EDEMA NOTED TO LOWER EXTREMITIES UPPER EXTREMITIES REMAIN PUFFY.TOLERATES SIPS OF WATER WELL WITH PO MEDS. CONTINUE TO MONITOR AND REPORT CHANGE IN PATIENT CONDITION.
--- NOTE | 2018-06-24 22:14 | NUR ---
MEDICATION: MEDICATED WITH PHENERGAN FOR CO NAUSEA. CONTINUE TO MONITOR AND REPORT CHANGE IN PATIENT CONDITION
[2018-06-25 03:46] LABS: BASOPHILS ABSOLUTE AUTO 0.04 K/mm3 (0.00-0.23); BASOPHILS PERCENT AUTO 0 % (0-2); EOSINOPHILS ABSOLUTE AUTO 0.23 K/mm3 (0.00-0.68); EOSINOPHILS PERCENT AUTO 3 % (0-6); Hematocrit 36.8 % (37.0-53.0); Hemoglobin 12.3 g/dL (13.5-17.5); IMMATURE GRAN ABSOLUTE AUTO 0.14 K/mm3 (0.00-0.10); IMMATURE GRAN PERCENT AUTO 2 % (0-1); LYMPHOCYTES ABSOLUTE AUTO 1.41 K/mm3 (0.84-5.20); LYMPHOCYTES PERCENT AUTO 15 % (21-46); MONOCYTES ABSOLUTE AUTO 0.85 K/mm3 (0.16-1.47); MONOCYTES PERCENT AUTO 9 % (4-13); Mean Corpuscular HGB 32.3 pg (26.0-34.0); Mean Corpuscular HGB Conc 33.4 g/dL (31.5-36.5); Mean Corpuscular Volume 97 fL (80-100); Mean Platelet Volume 10.6 fL (9.1-12.4); NEUTROPHILS ABSOLUTE AUTO 6.69 K/mm3 (1.96-9.15); NEUTROPHILS PERCENT AUTO 71 % (41-73); Platelet Count 287 K/mm3 (150-400); RDW Coefficient Variation 13.2 % (11.7-14.2); RDW Standard Deviation 47.2 fL (35.1-46.3); Red Blood Cell Count 3.81 M/mm3 (4.30-5.90); White Blood Cell Count 9.36 K/mm3 (4.00-11.30)
[2018-06-25 04:06] LABS: Alanine Aminotransfer (ALT/SGP 35 U/L (12-78); Albumin, Blood 3.1 g/dL (3.4-5.0); Albumin/Globulin Ratio 0.7 (0.8-1.8); Alk Phos 81 U/L (50-136); Anion Gap 10 mmol/L (6-16); Aspartate Aminotrans (AST/SGOT 19 U/L (12-37); Bilirubin, Total 0.6 mg/dL (0.1-1.0); Blood Urea Nitrogen 10 mg/dL (8-24); Bun/Creatinine Ratio 18.1 (12.0-20.0); CO2, Blood 26 mmol/L (21-32); Calcium, Blood 8.9 mg/dL (8.5-10.1); Chloride, Blood 107 mmol/L (98-108); Creatinine, Blood 0.55 mg/dL (0.60-1.20); Globulin, Blood 4.5 g/dL (2.2-4.0); Glomerular Filtration Rate >60 (60-); Glucose, Blood 121 mg/dL (70-99); Magnesium, Blood 2.3 mg/dL (1.6-2.4); Phosphorus, Blood 3.9 mg/dL (2.5-4.9); Potassium, Blood 3.7 mmol/L (3.5-5.5); Sodium, Blood 143 mmol/L (136-145); Total Protein, Blood 7.6 g/dL (6.4-8.2)
--- NOTE | 2018-06-25 10:27 | NUR ---
FIRST THING THIS AM PT WAS RESTLESS, NON-COMBATIVE AND ABLE TO FOLLOW COMMANDS. PT ON PRECEDEX GTT AT 1.4MCG AND HR, BP TOLERATING AT THIS POINT. PT CONT WITH POSE ON AND IS SOMEWHAT DIRECTABLE AND FOLLOWING COMMNADS. SPEACH IS GARBLED BUT IS APPROP. TO QUESTIONS, COMMENTS, REQUESTS.
--- NOTE | 2018-06-25 14:39 | NUR ---
WITNESSED SEIZURE OF PT SHAKING AND FULL BODY MOTION LASTING 30-45 SEC. PT SPONT AND ABRUPTLY STOPPED AND WAS ANSWERING QUESTIONS IMMEDIATLY POST SEIZURE. HVAC MECHANIC INDICATED THAT THIS IS TYPE OF SEIZURE PT WAS HAVING LAST WEEK ON ADMIT AND WAS NOT POST ICTIAL THEN EITHER. PT RESPONDED WELL TO ATIVAN 4MG IVT AND PRECEDEX GTT INC TO 1.4MCG. WILL NOTIFY ATTENDING
--- NOTE | 2018-06-25 17:52 | NUR ---
PT HAS RESTED WELL THE LAST FEW HOURS, NO FURTHER SEIZURES. PRECEDEX GTT DEC. TO 1.2 MCG AND WILL FOLLOW. I/O NOTED. SEE EMAR FOR MED ADMINISTRATION. PT HAS BEEN TEARFUL AT TIMES BUT WILL THE RELAX AND EXPRESSSES DESIRE TO "GET BETTER".
--- NOTE | 2018-06-25 18:27 | NUR ---
BP HAS BEEEN PERSISTING ELEVATED, MEDICATED WITH RESULTS, SEE FLOWSHEET.
--- NOTE | 2018-06-25 20:02 | NUR ---
PT RESTING IN BED. GOES FROM AWAKE AND TRYING TO GET OOB TO SLEEPY. WILL FOLLOW COMMANDS TO SWALLOW PILLS AND WATER. SOME OF HIS VERBAL IS COMPREHENSIBLE AND SOME IS NONSENSICAL. AT SHIFT CHANGE HE WAS SAYING HE FELL AND HIT HIS HEAD SURFING IS WHAT IS WRONG WITH HIM. S.O. AT BEDSIDE SAYS THAT HAS NEVER HAPPENED. WEAK T/O. PRECEDEX GTT AT 1.2MCG. ZAYRA VEST ON.
[2018-06-26 03:52] LABS: BASOPHILS ABSOLUTE AUTO 0.07 K/mm3 (0.00-0.23); BASOPHILS PERCENT AUTO 1 % (0-2); EOSINOPHILS ABSOLUTE AUTO 0.22 K/mm3 (0.00-0.68); EOSINOPHILS PERCENT AUTO 2 % (0-6); Hematocrit 40.1 % (37.0-53.0); Hemoglobin 13.2 g/dL (13.5-17.5); IMMATURE GRAN ABSOLUTE AUTO 0.21 K/mm3 (0.00-0.10); IMMATURE GRAN PERCENT AUTO 2 % (0-1); LYMPHOCYTES PERCENT AUTO 16 % (21-46); MONOCYTES ABSOLUTE AUTO 0.93 K/mm3 (0.16-1.47); MONOCYTES PERCENT AUTO 9 % (4-13); Mean Corpuscular HGB 32.2 pg (26.0-34.0); Mean Corpuscular HGB Conc 32.9 g/dL (31.5-36.5); Mean Corpuscular Volume 98 fL (80-100); Mean Platelet Volume 10.3 fL (9.1-12.4); NEUTROPHILS ABSOLUTE AUTO 7.21 K/mm3 (1.96-9.15); NEUTROPHILS PERCENT AUTO 70 % (41-73); Platelet Count 352 K/mm3 (150-400); RDW Coefficient Variation 12.8 % (11.7-14.2); RDW Standard Deviation 46.3 fL (35.1-46.3); White Blood Cell Count 10.34 K/mm3 (4.00-11.30)
[2018-06-26 04:09] LABS: Anion Gap 9 mmol/L (6-16); Blood Urea Nitrogen 13 mg/dL (8-24); Bun/Creatinine Ratio 21.7 (12.0-20.0); CO2, Blood 25 mmol/L (21-32); Calcium, Blood 8.9 mg/dL (8.5-10.1); Chloride, Blood 108 mmol/L (98-108); Glomerular Filtration Rate >60 (60-); Glucose, Blood 129 mg/dL (70-99); Phosphorus, Blood 3.5 mg/dL (2.5-4.9); Potassium, Blood 3.5 mmol/L (3.5-5.5); Sodium, Blood 142 mmol/L (136-145)
--- NOTE | 2018-06-26 06:31 | NUR ---
SUMMARY PT RESTING IN BED. AROUSES FROM SLEEP TO VOICE. ON PRECEDEX 1.2MCG. PT IS MORE AWAKE THIS AM. ABLE TO STATE MONTH AND YEAR, OFF ON DAY BY 5 DAYS. ABLE TO STATE PRESIDENT AND WHERE HE IS. ALSO ASKING FOR "PRN" MEDICATIONS BY NAME (FENTANYL) AND CAN RECOLLECT MEDS BY NAME AFTER EDUCATED. MOVING SELF AROUND IN BED. NO SEIZURE ACTIVITY. CIWA 10-12. NO SIGN OF DISTRESS.
--- NOTE | 2018-06-26 07:30 | NUR ---
ASSUMED CARE OF PATIENT; SEE ASSESSMENT CHARTING FOR DETAILED ASSESSMENT. PATIENT ALERT BUT SL. DROWSY; ORIENTED TO SELF/ENVIRONMENT; ORIENTED TO YEAR BUT THOUGHT MONTH WAS MAY (TODAY IS June). LUNGS CLEAR WITH A FEW RHONCHI NOTED IN UPPER AIRWAYS; CLEAR AFTER ENCOURAGING COUGHING AND DEEP BREATHING. BLANKENSHIP TO GRAVITY AND DRAINING MOD AMOUNTS OF MED. YELLOW URINE. PATIENT'S SPEECH PRETTY CLEAR AT THIS TIME BUT SLURRY OR SLOW TO RESPOND AFTER IV ATIVAN, PRECEDEX DRIP AT 1.2MCG/KG/HR. ABLE TO FOLLOW COMMANDS AND MOVE ALL EXTREM. BRIDGET. WATER AND MEALS WITHOUT DIFF. SWALLOWING, ETC. NEEDS ASSISTANCE WITH MEAL D/T POOR COORDINATION OF UE'S. SBP REMAINS MODERATELY ELEVATED; MONITOR REMAINS NSR WITHOUT ECTOPY.
--- NOTE | 2018-06-26 08:10 | NUR ---
PATIENT CALM AND WANTING TO HAVE A SHOWER. CHARGE NURSE, CIERA, DISCONTINUED IV PRECEDEX AND SHE AND CLERICAL SUPERVISOR GOT PATIENT OOB TO CHAIR AND THEN TO SHOWER (AMBULATED); FATIGUED AFTER ALL ACTIVITY BUT COOPERATIVE. APPETITE LIMITED; MUST BE ASSISTED WITH MEALS. KEPT UP IN RECLINER; LINEN CHANGE TO BED.
--- NOTE | 2018-06-26 09:00 | NUR ---
BACK TO BED FROM RECLINER; RN ASSISTED. PATIENT REATTACHED TO MULTIPLE MONITORS/CORDS. APPEARS GROGGY AND SLEEPY; HAD LIBRIUM PO AROUND 0810.
--- NOTE | 2018-06-26 09:20 | NUR ---
PATIENT SCOOTED TO FOB AND THEN PROCEDED TO GET OOB; STOOD UP AND STARTED TO WALK; FOOT MUST HAVE CAUGHT ON PAS OR F/C CORD; LARGE THUD HEARD AND ALL THE EAST SIDE ICU NURSES AND HAND TUFTER RAN TO FIND PATIENT LYING FLAT ON STOMACH WITH HEAD TURNED ON L SIDE; NO APPARENT WOUND OR LUMP NOTED; SOME REDNESS TO L CHEEKBONE AND SL. TENDERNESS TO TOUCH. SECURITY CAME TO ASSIST. STAFF TO HELP PATIENT GET UP. PATIENT STOOD WITH ASSIST. AND GUIDED TO RECLINER CHAIR. ATIVAN 2MG IV PUSH TO HELP PATIENT STAY CALM; ALSO GIVEN 50MCG/FENTANYL (IV) FOR C/O CHRONIC LE' DISCOMFORT. RESTARTED PRECEDEX DRIP AT 0.7MCG/KG/HR; WILL ADJUST DOSE NEEDED. DR. YODER CAME AND EVALUATED PATIENT WHILE HE WAS STILL ON FLOOR (DIRECTLY AFTER NURSING ARRIVED). NO ACUTE ISSUE FOUND; WILL KEEP CLOSE WATCH ON PATIENT.
--- NOTE | 2018-06-26 09:33 | NUR ---
FENTANYL 50MCG IV FOR LE DISCOMFORT.
--- NOTE | 2018-06-26 10:57 | NUR ---
PRECEDEX DRIP INCREASED TO 1.2MCG/KG/HR; PATIENT WITH CIWA >30. PO ATIVAN GIVEN EARLIER AND ADDITIONAL IV ATIVAN/FENTANYL ETC. GIVEN.
--- NOTE | 2018-06-26 11:18 | NUR ---
SEIZURE-LIKE ACTIVITY PT BEGINS FULL BODY SHAKING WITH SEIZURE-LIKE ACTIVITY, LASTS APPROX 15 SECONDS. ASKED PT IF HE COULD OPEN HIS EYES AND TAKE SOME DEEP BREATHS DURING SHAKING, HE SHOOK HIS HEAD "NO" THAT HE COULD NOT OPEN HIS EYES. PT STOPPED WITH THE SHAKING ACTIVITY AND IS ABLE TO ANSWER QUESTIONS APPROPRIATELY IMMEDIATELY AFTERWARD, DOES NOT APPEAR TO BE POST-ICTAL. PT STATES "I'M SICK OF THIS". PT'S MOTHER AND FATHER AT BEDSIDE DURING EVENT. PT'S MOTHER STATES THE PT SAID "HE FELT ANOTHER SEIZURE ABOUT TO START" PRIOR TO EVENT. PT MED c 4MG IV ATIVAN AFTER EVENT.
--- NOTE | 2018-06-26 12:00 | NUR ---
MULTIPLE MEDICATIONS OF LORAZEPAM (IV AND PO) FOR CIWA INCREASING (HALLUCINATIONS/AUDITORY AND VISUAL--SEEING SQUIRRELS ON THE [place] AND HEARING SOFT VOICE.) EPISODES OF SEIZURES WHEN PARENTS ARRIVED; 2 OCCURRED AROUND 1040 AND LAST 15-30 SECONDS. NO NOTED INJURY DURING SHAKING WITH PATIENT LYING ON SIDE; SEIZURE PADS IN PLACE TO PREVENT INJURY. NO SIGNS OF POST ICTAL BEHAVIOR NOTED. SEEMS TO CALM, DURING SEIZING WHEN STAFF ASK HIM TO CALM DOWN; APPEARS TO BE HEARING WHAT WE SAY. APPETITE POOR; ASSISTED WITH MEALS BUT INTAKE LIMITED.
--- NOTE | 2018-06-26 18:53 | NUR ---
SUMMARY: REMAINS IN FULL BLOWN DT'S; BEHVIOR LABILE; IS NOT MEAN OR FOUL MOUTHED BUT BECOMES AGGITATED AND STARTS SEIZURING; MULTIPLE PRN IV AND PO MEDS GIVEN WELL PRECEDEX DRIP UP TO 1.2 MCG/KG/HR. GIRL FRIEND ARRIVED; APPEARS TO SOOTHE/CALM PATIENT. OXYGEN APPLIED AFTER MOST RECENT DOSE OF FENTANYL GIVEN; BIOX HIGH 80'S; ENCOURAGED TO COUGH AND DEEP BREATHE. 02 AT 2L/MIN VIA NC. VOIDED ABOUT 50ML ABOUT 1/2 HOUR AFTER F/C REMOVED; INCONTINENT ? ONCE; MANAGED TO SPILL WATER WHEN SITTING IN RECLINER AND PANTS WET. CLOTHING CHANGED, ETC. WILL REPORT TO ONCOMING RN.
--- NOTE | 2018-06-26 20:00 | NUR ---
ASSUMED CARE OF PT AT 1915. REPORT RECEIVED. PT PRESENTS IN BED. ALERT AND MOSTLY ORIENTED. PT'S S.O. AT BEDSIDE. PT ON 1.2 MCG/KG/HOUR PRECEDEX DRIP. NO COMPLAINTS VOICED BY PT. ZAYRA VEST RESTRAINT IN PLACE. WILL REVIEW CHART AND PLAN OF CARE FOR THIS PT.
--- NOTE | 2018-06-26 23:14 | NUR ---
PT HAS ATTEMPTED TO GET OUT OF HIS ZAYRA VEST TWICE THIS SHIFT. WOULD NOT STOP DESPITE HAVING VERBAL WARNING OF STRANGULATION RISK FROM ZAYRA AROUND NECK. TWO STAFF MEMBERS TO ASSIST PT BACK UP INTO BED. RESECURED ZAYRA. PT VERBALLY AND WAS BEGINNING TO THREATEN OF VIOLENTLY AGGRESSION. PT HAD CALLED HIS MOTHER IN [place] AND TOLD HER THAT HE WAS LEAVING. MOTHER PHONED BACK TO ICU AND THIS RN SPOKE WITH HER CONCERNING HIS STATUS. THE FACT THAT HE WAS ON PRECEDEX DRIP THAT WAS INCREASED, AND THAT HE WAS NOT SAFE TO LEAVE AT THIS TIME. DID MEDICATE PT WITH 4 MG ATIVAN. PT CURRENTLY IN BED. DID PLACE BED IN SLIGHT [place]G POSITION TO MAKE IT MORE DIFFICULT FOR HIM TO SLIDE DOWN AND TRY TO GET ZAYRA OFF. HAVE MEDICATED PT WITH 10 MG HYDRALAZINE FOR ELEVATED BLOOD PRESSURE. PT HAS HAD BRADYCARDIA AFTER HE WAS ASLEEP 50'S TO MID 60'S. HAVE KEPT DIRECT OBSERVATION ON PT FOR HIS SAFETY.
[2018-06-27 04:27] LABS: BASOPHILS ABSOLUTE AUTO 0.08 K/mm3 (0.00-0.23); BASOPHILS PERCENT AUTO 1 % (0-2); EOSINOPHILS ABSOLUTE AUTO 0.25 K/mm3 (0.00-0.68); EOSINOPHILS PERCENT AUTO 3 % (0-6); Hematocrit 39.1 % (37.0-53.0); Hemoglobin 13.1 g/dL (13.5-17.5); IMMATURE GRAN ABSOLUTE AUTO 0.26 K/mm3 (0.00-0.10); IMMATURE GRAN PERCENT AUTO 3 % (0-1); LYMPHOCYTES PERCENT AUTO 24 % (21-46); MONOCYTES PERCENT AUTO 8 % (4-13); Mean Corpuscular HGB 32.3 pg (26.0-34.0); Mean Corpuscular HGB Conc 33.5 g/dL (31.5-36.5); Mean Corpuscular Volume 97 fL (80-100); Mean Platelet Volume 9.9 fL (9.1-12.4); NEUTROPHILS ABSOLUTE AUTO 5.85 K/mm3 (1.96-9.15); NEUTROPHILS PERCENT AUTO 61 % (41-73); Platelet Count 355 K/mm3 (150-400); RDW Standard Deviation 46.6 fL (35.1-46.3); Red Blood Cell Count 4.05 M/mm3 (4.30-5.90); White Blood Cell Count 9.54 K/mm3 (4.00-11.30)
[2018-06-27 04:43] LABS: Anion Gap 9 mmol/L (6-16); Blood Urea Nitrogen 11 mg/dL (8-24); Bun/Creatinine Ratio 17.7 (12.0-20.0); CO2, Blood 24 mmol/L (21-32); Calcium, Blood 8.7 mg/dL (8.5-10.1); Chloride, Blood 110 mmol/L (98-108); Creatinine, Blood 0.62 mg/dL (0.60-1.20); Glomerular Filtration Rate >60 (60-); Glucose, Blood 132 mg/dL (70-99); Potassium, Blood 3.6 mmol/L (3.5-5.5); Sodium, Blood 143 mmol/L (136-145)
--- NOTE | 2018-06-27 05:12 | NUR ---
PT AWAKENS AND COMPLAINS OF LEG PAIN WHICH HE RATES 9/10. CLAIMS HE USES IBUPROFEN AT HOME FOR THIS PT. DID MEDICATE PT WITH 50 MCG FENTANYL WHEREAS PT HAS NO FURTHER COMPLAINTS. DOES ASK IF WE ARE IN "[place]" AND WAS REORIENTED. LATER ASKS, "ARE WE REALLY IN [facility]?" AGAIN REORIENTED PT. PT CURRENTLY SLEEPING. NO APPARENT DISTRESS. WILL CONTINUE TO MONITOR.
--- NOTE | 2018-06-27 06:53 | NUR ---
PT AWAKES AND STATES HE WANTS TO GO HOME THIS MORNING. SPOKE WITH PT THAT HE WOULD NEED TO SPEAK TO MD THIS MORNING. INTRODUCED HARPER ROACH TO PT AND REPORT GIVEN. AFTER LEAVING ROOM PT BEGINS TO VIOLENTLY JERK IN APPARENT SEIZURE LIKE MOTION. THIS LAST FOR APPROX 20 SECONDS.
--- NOTE | 2018-06-27 07:05 | NUR ---
Recieved report from Kevin SALEEM. Patient is sitting up in bed with HOB at 30 degrees. He is awake and communicates his needs although is very confused and thinks he is in many different places. He is on 2L via NC and sats in the upper 90%'s. He has PICC line in HARISH, dressing changed yesterday and intact and is infusing NS TKO, and Precedex 1.2 mcg/kg/hr. He is in vin[place] and is requesting for us to cut straps and [place]. He uses urinal by request and needs to be asked frequently. SUSAN.
--- NOTE | 2018-06-27 11:30 | NUR ---
Patient up again with standby assist. he has been in bed and was up to bathroomm again for soft brown BM. Family has gone. He has poor appetite R/t thrush and am awaiting medication. He had fever 99.9 and medicated per MAY and gave ativan for anxiety.
--- NOTE | 2018-06-27 12:14 | NUR ---
Family arrived just after breakfast and he was done with bath and sitting in chair for breakfast. He took am meds with applesauce. He states that it hurts when he eats and is sticking to soft foods. He looks to have thrush in his mouth and called dr Arciniega and will order nystatin swish and swallow. Family talked with SS and will be trying to get him in facility for rehab ([facility] in [place]). He has been up to bathroom for BM, soft brown. Precedex off and vinh untied.
--- NOTE | 2018-06-27 14:16 | NUR ---
Dr Arciniega on unit seeing patient. He went for walk around unit with charge nurse and tolerated well. Have medicated frequently with Ativan for withdrawls/anxiety and tolerates well. He calls appropriatly to use urinal.
[2018-06-27 14:39] LABS: Percent Saturation 22.4 % (20.0-50.0)
--- NOTE | 2018-06-27 15:28 | NUR ---
Took patient for walk around hospital and he tolerated well, mostly in wheelchair. He continues with 99.99-100.6 temp and gave 650mg of tylenol with out success. He was up to bathroom again and had small BM. He is currently resting in bed.
--- NOTE | 2018-06-27 17:04 | NUR ---
Patient has continued low grade fever and becomes flush for brief periods. He asked to have precedex turned back on and he has recieved 24mg avtivan this shift andf restarted Precedex at 0.7mcg/kg/hr. He remains with vinh on but not tied and follows directions well. He communicates his increased anxiety and lets us know when he needs more medication.
--- NOTE | 2018-06-27 18:13 | NUR ---
ASSUMED CARE OF PT AT 1800. REPORT RECEIVED AT BEDSIDE. PT PRESENTS IN BED SOMEWHAT SOMNULENT. ACKNOWLEDGES THAT HE IS STILL HEARING A SOFT VOICE, AND HAVING VISUAL HALLUCINATIONS. PT CONTINUES ON PRECEDEX DRIP AT 1.2 MCG/KG/HOUR. DID PLACE BED ALARM ON SECONDARY TO PT'S IMPULSIVE HISTORY. WILL REVIEW CHART AND PLAN OF CARE FOR THIS PT.
--- NOTE | 2018-06-27 19:23 | NUR ---
PT'S GIRLFRIEND ARRIVES TO ROOM. PT CURRENTLY SLEEPING. PT HAS HAD SEVERAL ATTEMPTS TO GET OUT OF BED PRIOR TO HER ARRIVING. HE WAS NOT SURE WHERE HE WAS TRYING TO GO. PRECEDEX TO CONTINUE AT 1.2 MCG'S/KG/HOUR. CURTAINS TO ROOM AND DOOR LEFT OPEN FOR CLOSER OBSERVATION OF PT FOR HIS SAFETY.
--- NOTE | 2018-06-28 00:30 | NUR ---
HAVE OPTED TO HOLD MIDNIGHT DOSE OF LIBRIUM. PT WAS ASLEEP AND IN NO DISTRESS. WILL KEEP MONITORING PT. NO COMPLAINTS OF PAIN. HAS REMAINED ON ROOM AIR AND MAINTAINS OXYGEN SATURATIONS > 90 PERCENT.
[2018-06-28 04:25] LABS: BASOPHILS ABSOLUTE AUTO 0.07 K/mm3 (0.00-0.23); BASOPHILS PERCENT AUTO 1 % (0-2); EOSINOPHILS ABSOLUTE AUTO 0.16 K/mm3 (0.00-0.68); EOSINOPHILS PERCENT AUTO 2 % (0-6); Hematocrit 39.5 % (37.0-53.0); Hemoglobin 12.8 g/dL (13.5-17.5); IMMATURE GRAN ABSOLUTE AUTO 0.27 K/mm3 (0.00-0.10); IMMATURE GRAN PERCENT AUTO 3 % (0-1); LYMPHOCYTES ABSOLUTE AUTO 2.12 K/mm3 (0.84-5.20); LYMPHOCYTES PERCENT AUTO 26 % (21-46); MONOCYTES ABSOLUTE AUTO 0.62 K/mm3 (0.16-1.47); MONOCYTES PERCENT AUTO 8 % (4-13); Mean Corpuscular HGB 32.2 pg (26.0-34.0); Mean Corpuscular HGB Conc 32.4 g/dL (31.5-36.5); Mean Corpuscular Volume 100 fL (80-100); Mean Platelet Volume 10.3 fL (9.1-12.4); NEUTROPHILS ABSOLUTE AUTO 5.04 K/mm3 (1.96-9.15); NEUTROPHILS PERCENT AUTO 61 % (41-73); Platelet Count 351 K/mm3 (150-400); RDW Coefficient Variation 13.2 % (11.7-14.2); RDW Standard Deviation 48.2 fL (35.1-46.3); Red Blood Cell Count 3.97 M/mm3 (4.30-5.90); White Blood Cell Count 8.28 K/mm3 (4.00-11.30)
[2018-06-28 04:40] LABS: Anion Gap 7 mmol/L (6-16); Blood Urea Nitrogen 11 mg/dL (8-24); Bun/Creatinine Ratio 18.5 (12.0-20.0); CO2, Blood 24 mmol/L (21-32); Calcium, Blood 8.7 mg/dL (8.5-10.1); Chloride, Blood 111 mmol/L (98-108); Glomerular Filtration Rate >60 (60-); Glucose, Blood 130 mg/dL (70-99); Phosphorus, Blood 4.5 mg/dL (2.5-4.9); Potassium, Blood 4.2 mmol/L (3.5-5.5); Sodium, Blood 142 mmol/L (136-145)
--- NOTE | 2018-06-28 06:50 | NUR ---
HAVE BEEN ABLE TO TITRATE DOWN PRECEDEX TO 0.8 MCG/KG/HOUR. HAVE MEDICATED PT ONCE WITH 50 MCG FENTANYL FOR COMPLAINTS OF LEG PAIN. PT'S HAS DEMONSTRATED AN IMPROVING CIWA SCORING WITH LAST MEASUREMENT BEING 8. SEE CIWA SCORING FLOWSHEET FOR DETAILS THROUGHOUT THE SHIFT. PT HAS REMAINED APPROPRIATE THIS NIGHT WITHOUT ATTEMPTS TO GET OUT OF BED. MUCH IMPROVED DECISION MAKING NOTED. DID HOLD MIDNIGHT LIBRIUM WHILE ALSO TITRATING PRECEDEX. DID MEDICATE PT WITH 0800 DOSE OF LIBRIUM SECONDARY TO INCREASING W/D SYMPTOMS. WILL CONTINUE TO MONITOR PT, AND WILL REPORT OFF TO ONCOMING RN.
--- NOTE | 2018-06-28 07:15 | NUR ---
RECEIVED REPORT FROM HARPER ADAMS, AND ASSUMED CARE OF PT.
--- NOTE | 2018-06-28 10:16 | NUR ---
DR. SOTO AT BEDSIDE FOR EVALUATION.
--- NOTE | 2018-06-28 20:00 | NUR ---
ASSUMED CARE OF PT. REPORT RECEIVED AT BEDSIDE. PT PRESENTS IN BED. ALERT AND ORIENTED. PLEASANT AND COOPERATIVE WITH CARE AND ASSESSMENT. PT'S MENTATION MUCH IMPROVED FROM PAST 24 HOURS. PRECEDEX DRIP AT 0.2 MCG'S/KG/HOUR. PT REQUESTING FENTANYL FOR LEG PAIN. WILL DOSE PER PRN EMAR. WILL REVIEW CHART AND PLAN OF CARE FOR THIS PT.
--- NOTE | 2018-06-28 22:32 | NUR ---
HAVE CALLED DR CHOPRA TO REQUEST IBUPROFEN FOR LEG PAIN. THIS BEING WHAT PT USES AT HOME. ALSO REQUESTING NEURONTIN WELL. ORDERS RECEIVED. HAVE MEDICATED PT WITH BOTH. PT STILL REQUESTS FENTANYL FOR LEG ISSUES. DID DISCUSS WITH PT THAT HE WILL NOT BE LEAVING HOSPITAL ON FENTANYL, AND THAT WE NEED TO PROGRESS TO ORAL MEDICATIONS. PT VOICES UNDERSTANDING. WILL CONTINUE TO MONITOR PT, AND WILL EVALUATE MEDICATIONS GIVEN.
--- NOTE | 2018-06-29 05:20 | NUR ---
PT HAS BEEN CALLING AT ABOUT Q 2 HOURS FOR "MY NIGHT MEDICATION" WHICH IS WHAT HE IS REFERRING WHEN HE IS ASKING FOR FENTANYL. PT HAS BECOME INCREASINGLY ANXIOUS AND HALLUCINATIONS RETURNED. DID INCREASE PRECEDEX DRIP TO 0.4 MCG/KG/HOUR. PT IS CURRENTLY SLEEPING. WAS SOMNULENT AT 0400 SO OPTED TO HOLD LIBRIUM DOSE. WILL CONTINUE TO MONITOR PT, AND WILL REPORT OFF TO ONCOMING RN.
--- NOTE | 2018-06-29 07:40 | NUR ---
ASSUMED CARE: RECEIVED REPORT FROM NOC RN SKIP Leo PT APPEARS TO BE SLEEPING AT THIS TIME, WITH EVEN CHEST RISE AND FALL. VITALS APPEAR TO BE STABLE AT THIS TIME. NO ACUTE DISTRESS NOTED. WILL ASSESS FURTHER AND CONTINUE TO MONITOR.
--- NOTE | 2018-06-29 10:37 | NUR ---
EDDIE REYNOLDS: PHONE CALL APPOINTMENT FROM EDDIE REYNOLDS TRANSFERED IN TO ROOM.
--- NOTE | 2018-06-29 11:38 | NUR ---
FULL BODY SHAKING: PT CALLS RN TO ROOM AND STATES HE BIT HIS TONGUE AND IS NOTED TO BE MILDLY BLEEDING. THIS RN REVIEWS TELEMITRY TO SEE IF PT HAD ANY SIGNS OF SEIZURE ON PRIOR TO BEING CALLED INTO THE ROOM. WHILE REVIEWING TELEMITRY PT IS NOTED TO BE MAKING NOISES AND IS NOTED TO BE LAYING OFF TO THE L SIDE OF THE BED SHAKING VIGOROUSLY. THIS RN, THE ELECTROSTATIC POWDER COATING TECHNICIAN ALISON HERCULES, ANOTHER RN FROM THE UNIT ENTER AND DR JALLOH THE ROOM, PT DOES NOT RESPOND TO VERBAL STEMULI. THIS RN GOES TO RETRIEVE ATIVAN, BUT PRIOR TO RETURNING DR JALLOH STATES PT IS ALERT AND DOES NOT NEED ATIVAN AT THIS TIME. THE ELECTROSTATIC POWDER COATING TECHNICIAN ALISON HERCULES STATES THAT WHILE THIS RN WAS OUT OF THE ROOM PT SAT UP, AND STARTED TALKING. BP AND HR IS NOTED TO BE ELIVATED. PT STATES HE IS ABLE TO KNOW WHEN A "SEIZURE" IS COMING ON HE BEGINS TO SEE "SQUIRRELS AND CATS" RUNNING ALONG THE COUNTER IN THE ROOM. WHEN ASKED ABOUT HALUCINATIONS FROM THE NIGHT, PT STATES HE DID NOT HAVE A "SEIZURE" AFTER HAVING HALUCINATIONS. WILL CONTINUE TO MONITOR. WILL CONTINUE TO MONITOR AND ASSESS FURTHER.
--- NOTE | 2018-06-29 11:59 | NUR ---
VOMIT: PT IS NOTED TO BE LEANING OVER THE L SIDE OF THE BED VOMITING INTO A SIDE TABLE GARBAGE BAG. SCANT AMOUNT NOTED IN THE BAG APPEARS TO BE LESS THAN 30ML AND IS NOTED TO BE GREEN IN COLOR. PT PROVIDED AN EMISIS BAG. PT REFUSES LUNCH AND ANY MEDICATIONS TO PREVENT NAUSEA.
--- NOTE | 2018-06-29 12:10 | NUR ---
VISITOR: YOUNG WOMAN CAME TO VISIT PT. PT ASKS FOR A "BABY BAG" THAT SAFF HAD REMOVED FROM HIS ROOM, WOMAN STATES IT IS NOT NEEDED AND TO NOT LOOK FOR IT. SHORT WHILE LATER VISITOR IS HEARD SWEARING AND VOICE IS SLIGHTLY RAISED. VISITOR IS HEARD STATING "I'M DONE" AND IS SEEN WALKING OUT OF THE UNIT WITH GLASSES ON, FACE RED AND HEARD SNIFFLING.
--- NOTE | 2018-06-29 12:42 | NUR ---
AMA & DR MICHELLE: PT CALLS THIS RN TO ROOM, REQUESTS HIS "STREET CLOTHES", AND STATES HE IS GOING TO LEAVE AMA. CONTINUES TO STATE HE CAN'T CONTINUE TO "FLOP" AROUND AND WANTS TO GO TO [facility] IN [facility] TO GET A DIFFERENT MEDICATION. EDUCATED PT THAT IT IS LIKLY [facility] WILL NOT ACCEPT HIM AND WILL ATEMPT TO SEND HIM RIGHT BACK TO THE HOSPITAL D/T SEVERITY OF WITHDRAWS. QUILT MAKER NOTIFIED OF THE SITUATION. DR MICHELLE NOTIFIED AND DISCUSED CIWA SCORE SHOWING 22, BUT MAY NOT REFLECT A TRUE SCORING D/T NOTED BEHAVIOR. DR MICHELLE STATES SHE IS GOING TO COME AND TALK WITH THE PT. NOTIFIED HER OF THE SEIZURE AND BEHAVIOR NOTED WITH SEIZURE. WILL CONTINUE TO MONITOR
--- NOTE | 2018-06-29 13:47 | NUR ---
AMA & MED REFUSAL: DR MICHELLE PLACED ORDERS FOR CATAPRESS, PT REFUSED TO TAKE IT. PT HAS BEEN NOTED ON THE PHONE TO NUMEROUS PEOPLE. PT CONTINUES TO ASK FOR HIS CLOTHES. EDUCATED PT IF HE LEAVES AMA HE WILL HAVE TO WALK OUT OF HIS OWN DEONDRE. CALL OUT TO DR MICHELLE AT THIS TIME TO NOTIFY OF PT INSISTING TO LEAVE AMA.
--- NOTE | 2018-06-29 14:06 | NUR ---
CALL FROM FAUTHER: DAMION THE FAUTHER CALLED TO TALK WITH THIS RN. HE STATES PT IS STATING HE IS IN PAIN AND WANTS TO KNOW WHAT WE ARE GIVING HIM FOR THAT. EDUCATED FAUTHER ON THE PROCESS OF PRN PAIN MEDICATION ORDERS. UPDATED FAUTHER ON SITUATION OF PT AGITATION. EDUCATED ON REQUIREMENTS FOR A PT TO BE PLACED ON A HOLD AND CURRENTLY HAVING NO LEGAL BASIS TO HOLD PT AT THIS TIME. TRANSFERED CALL INTO PT ROOM.
--- NOTE | 2018-06-29 14:09 | NUR ---
DR NOTIFIED OF PLAN TO LEAVE AMA: DISCUSSED WITH ANOTHER DR ABOUT HOLD. WILL NOT BE PLACING A HOLD ON PT.
--- NOTE | 2018-06-29 15:02 | NUR ---
LEAVING AMA: PT'S MOTHER AND FAUTHER HAVE BOTH CALLED, SEE PREVIOUS NOTES REGARDING TALK WITH FATHER. MOTHER STATES CONCERS OF PT STATING HE IS IN PAIN AND ALL MEDS HAVE BEEN TAKEN AWAY FROM HIM. EDUCATED MOTHER OF MEDICATIONS AVAILABLE AND PT HAS NOT STATED ANY INCREASED PAIN SINCE STATMENT OF PAIN THIS AM AND WAS MEDICATED. UPDATED MOTHER ON PT REFUSAL OF NUMEROUS MEDICATIONS. TALKED WITH PT ABOUT PARENTS CONCERN OF HIS PAIN AND PT STATES "OF COURSE IM IN PAIN I'M WITHDRAWING". ASKED PT IF HE WOULD LIKE TO RECEIVE HIS FENTANYL PT STATES NO AND THAT IT DOESN'T LAST LONG ENOUGH. PT CONTINUES TO STATE HE IS LEAVING AND GETS DRESSED. PICC LINE IS REMOVED BY PRIMARY SCHOOL TEACHER AND PT IS EDUCATED ON RISKS OF LEAVING, PT STATES UNDERSTANDING AND SIGNS AMA PAPERWORK. PERFORMED A [place] SUICIDE SCREAN AND PT EVELYN ANY THOOUGHTS OF SUICIDE.
--- NOTE | 2018-06-29 15:18 | NUR ---
FAMILY CALLS: FATHER CALLED AND STATES CONCERNS THAT PT IS NOT BEING HELD. STATES "HE'S GOING TO " CONTINUES TO STATE THAT PT MADE STATEMENTS OF SUICIDE TO HIM. EDUCATED FATHER THAT PT WAS ASSESSED FOR SUICIDE AND DENIES ANY THOUGHTS OF SUICIDE THEREFORE LEGALY WE ARE UNABLE TO HOLD PT AGAINST HIS WILL.
--- NOTE | 2018-06-29 15:21 | NUR ---
ROSITA CONTINUED: PT WAS ASKED BY THE PRODUCT PROMOTER SALES PERSON AND THIS RN WHAT HIS PLAN IS TO GET HIM THROUGH THE NEXT 2 DA[facility]. PT STATES HE IS GOING TO BE WITH HIS GIRL FRIEND AND HIS KIDS FOR [place] AND WILL "TALK" BECAUSE HIS GIRL FRIEND IS 3 YEARS SOBER. STATES HE WILL BE WITH HER AND HER PARENTS AND HAS NO INTENTIONS OF DRINKING. STATES HIS GIRL FRIEND IS GOING TO COME GET HIM.
--- NOTE | 2018-06-29 15:23 | NUR ---
CALL FROM GIRLFRIEND: GIRL FRIEND CALLS TO BE TRANSFERED INTO THE PT ROOM, BUT PT IS ON THE PHONE AT THIS TIME THIS RN TALKS TO HER. GIRL FRIEND STATES THAT HE IS TALKING ABOUT LEAVING AND THIS RN STATES THAT IS CORRECT AND THAT HE HAS ALREADY SIGNED HIS PAPERS AND STATED THAT SHE IS COMING TO GET HIM. SHE STATES SHE IS NOT COMING TO GET HIM. PT NOTIFIED THAT SHE CALLED.
--- NOTE | 2018-06-29 15:26 | NUR ---
PT WALKED OUT OF UNIT AT THIS TIME IN HIS CLOTHES WITH 2 PAIRS OF HOSPITAL SOCKS ON D/T NOT HAVING ANY SHOES.
[2018-06-29] MEDS ORDERED: CITA10S (22:36)
[2018-06-30] MEDS ORDERED: CITA20 PO (01:33)
[2018-06-30] MEDS ORDERED: MULTIVITAMIN W1 EACH PO (01:34)
== END 2018-06-29 15:29 | disposition left against medical advice (07) | DRG 894 ==
LOC: ER 13:28 → ICUE 15:54 → ICUW 15:54 → ICUE 16:57
PROVIDERS: Emergency Medicine; Family Medicine; Internal Medicine; Internal Medicine Critical Care Medicine; Internal Medicine Pulmonary Disease; ADMIT Family Medicine
PROC: 0BH17EZ Insertion of Endotracheal Airway into Trachea, Via Natural or Artificial Opening (ICD-10-PCS; principal; 2018-06-19)
PROC: 5A1955Z Respiratory Ventilation, Greater than 96 Consecutive Hours (ICD-10-PCS; 2018-06-19)
PROC: 02HV33Z Insertion of Infusion Device into Superior Vena Cava, Percutaneous Approach (ICD-10-PCS; 2018-06-19)
DX: F10.231 Alcohol dependence with withdrawal delirium (principal); J69.0 Pneumonitis due to inhalation of food and vomit; G40.89 Other seizures; G93.40 Encephalopathy, unspecified; F15.23 Other stimulant dependence with withdrawal; F12.10 Cannabis abuse, uncomplicated; D72.829 Elevated white blood cell count, unspecified; F17.210 Nicotine dependence, cigarettes, uncomplicated; D63.8 Anemia in other chronic diseases classified elsewhere; I10 Essential (primary) hypertension
CPT/HCPCS: 31720; 36415; 36569; 36600; 51702; 71045; 80053; 80069; 82150; 82728; 82803; 82947; 83540; 83550; 83605; 83690; 83735; 84100; 84145; 84443; 84478; 84484; 85025; 85027; 87040; 87070; 87077; 87185; 87205; 94003; 94640; 96361; 96372-59; 96374; 96375; 96376; 99285-25; C1751; C9113; G0480; J0330; J0360; J0696; J1650; J1885; J2060; J2250; J2405; J2543; J2550; J2704; J3010; J3411; J3475; J3480; J7030; J7042; J7050; J7120

== ENCOUNTER 2018-06-29 22:16 | Inpatient (IN) | payer OTHER ==
[~2018-06-29] VITALS: Ht 182.9 cm; Wt 89.8 kg
[~2018-06-29 22:16] MED LIST changes: +CHLO25 PO; +CLON.1 PO; +FOLI400 PO; +GABA300 PO; +LORA1 PO; +MELATONIN5 M1 PO; +THERA1 EACH PO
[2018-06-29] MEDS ORDERED: CITA10S (22:36)
--- NOTE | 2018-06-30 01:20 | NUR ---
PATIENT ARRIVED TO ICU5 VIA GURNEY FROM ED. WITH DX OF ETOH AND HEROIN WITHDRAWAL. PATIENT HAD LEFT AMA 06/29 AND CAME BACK TO HOSPITAL DUE TO INCREASED TREMORS AND PAIN IN LEGS. PATIENT ABLE TO TRANSFER SELF TO BED, A&O X3 WITH FULL BODY TREMOR THAT COMES AND GOES. PATIENT ALSO HEARING CHILDREN LAUGHING, NO VISUAL HALLUCINATIONS. DOCTOR LINDSAY IN TO SEE PATIENT ORDER OBTAINED FOR IBUPROFEN FOR LEG PAIN.
[2018-06-30] MEDS ORDERED: CITA20 PO (01:33)
[2018-06-30] MEDS ORDERED: MULTIVITAMIN W1 EACH PO (01:34)
--- NOTE | 2018-06-30 03:31 | NUR ---
PATIENT VERY RESTLESS AND HAVING TREMOR. PATIENT ALSO C/O HEARING CHILDREN LAUGHING AND ALSO SEEING CATS. PATIENT UP TO CHAIR. LIBRIUM PO GIVEN.
--- NOTE | 2018-06-30 03:54 | NUR ---
PATIENT WAS UP IN CHAIR, LEANING FORWARD AND ROCKING BACK AND FORTH. A THUMP WAS HEARD AND PATIENT FOUND ON FLOOR. PATIENT STATES HE HIT HIS HEAD AND RIGHT FOOT WAS TWISTED UNDER HIM. PATIENT ABLE TO STAND AND WALK BACK TO BED WITHOUT DIFFICULTY. DAVID. PATIENT VERBALIZED UNDERSTANDING ON NEED TO STAY IN BED WHILE TREMORS ARE PRESENT AND TO NOT GET OUT OF BED BY HIMSELF. PATIENT PLACED IN A YELLOW GOWN AND DOCTOR LINDSAY CALLED.
[2018-06-30 06:13] LABS: U Amphetamine Screen Not Detected; U Barbituate Screen Not Detected; U Benzodiazapine Screen DETECTED; U Buprenorphine Screen Not Detected; U Cannabinoids Screen Not Detected; U Cocaine Screen Not Detected; U Methadone Screen Not Detected; U Methamphetamine Screen Not Detected; U Opiates Screen DETECTED; U Oxycodone Screen Not Detected; U Phencyclidine Screen Not Detected; U Propoxyphene Screen Not Detected
--- NOTE | 2018-06-30 06:30 | NUR ---
SUMMARY PATIENT NOW RESTING QUIETLY WATCHING TV. NO FURTHER ANXIETY, ONLY SLIGHT TREMOR. PATIENT VERBALIZED HE IS FEELING BETTER. PATIENT GIVEN LIBRIUM ONCE DURING THE NIGHT FOR INCREASED TREMOR AND HALLUCINATIONS.
--- NOTE | 2018-06-30 07:30 | NUR ---
ASSUMED CARE OF PATIENT; SEE ASSESSMENT CHARTING FOR DETAILS. PATIENT C/O CHRONIC PAIN TO LE'S AND APPEARS ALMOST LIKE 'RESTLESS LEG SYNDROME'. ORIENTED AND COOPERATIVE. APPETITE LIMITED BUT TAKING LIQUIDS OKAY. VOIDING IN URINAL AROUND 700ML PER VOID. BEDREST D/T HIGH RISK FALL; BED ALARM ON TO ALERT STAFF IF PATIENT TRYING TO GET OOB. PATIENT STATES HE WILL USE HIS CALL LIGHT IF HE NEEDS OOB. ANXIOUS TO TRANSFER TO [facility]; TENTATIVELY TO BE TRANSFERRED TOMORROW. PATIENT SOMEWHAT ANXIOUS BUT HAS SENSE OF HUMOR. LUNGS CLEAR AND BIOX. WNL. WILL MONITOR CLOSELY AND CHECK CIWA SCORES ROUTINELY; CURRENTLY '15'.
--- NOTE | 2018-06-30 12:30 | NUR ---
PATIENT RESTLESS BUT NOT HAVING HALLUCINATIONS (VERBAL OR VISUAL). WANTING TO GET FORMS FROM [facility] SO HE CAN SIGN UP BEFORE HIS BED ENDS UP BEING USED BY SOMEONE ELSE. STATES HIS MOTHER HAD A PHONE CALL CONFERENCE CALL WITH [facility] STAFF. PATIENT SPOKE WITH HIS DAD AND SAID HE WOULD "HOOF IT OVER TO THE LOCAL [facility] TO GET THE FORMS." TOLD RN HE WOULD STAY THE NIGHT WITH HIS PARENTS AND THEY WOULD TAKE HIM TO [facility]. RN CONTACTED KYLEIGH ZARATE, CALL TAKER, TO SPEAK WITH PATIENT/FAMILY NEEDED. PATIENT'S MOTHER T/C TO RN AND SHE STATES PATIENT NEEDS TO FILL OUT THE FORMS; RN SAID MOTHER COULD HAVE THE FORMS FAXED TO ICU IF THAT WOULD BE APROPRIATE; MOTHER TOOK DOWN FAX #. SHE ALSO TOLD RN THAT PATIENT TOLD HER AND HER , NOT TO COME TO [place] TODAY. PATIENT APPEARS TO BE MANIPULATING FAMILY AND HOSPITAL STAFF. PATIENT DRESSED IN STREET CLOTHES; RN REQUESTED HE GO BACK TO BED. SAT ON BED BUT DID NOT GET INTO BED. RN TOLD PATIENT HE IS MANIPULATING PARENTS AND HOSPITAL STAFF; HE DENIES THIS. RN INFORMED HIM (PER HIS MOTHER) THAT HE DID NOT WANT HER (MOTHER) TO COME UP. TOLD RN HE PLANS TO HAVE HIS GIRL FRIEND PICK HIM UP, ETC.
--- NOTE | 2018-06-30 13:30 | NUR ---
PATIENT SOMEWHAT RESTLESS AND INSISTANT HE NEEDS TO GO HOME AND SEE HIS KIDS BEFORE HE IS ADMITTED TO INPATIENT [facility] TOMORROW. RN ADVISED THAT KIDS CAN COME IN, BRIEFLY, AND SEE PATIENT THIS EVENING OR IN AM. PATIENT STATES THE OLDEST IS 7 YO AND IF SHE SEES HIM HERE IN THE HOSPITAL HER BIO-FATHER COULD USE THAT AGAINST HIM AND HER MOTHER, ETC. PATIENT MAKING EXCUSES FOR WHY HE NEEDS TO LEAVE TODAY RATHER THAN TOMORROW. ATIVAN 4MG IV; RECEIVED 100MG PO LIBRIUM AT 1315; PATIENT UNABLE TO SLEEP; DID NOT SLEEP LAST NIGHT.
--- NOTE | 2018-06-30 13:45 | NUR ---
DR. SOTO HERE; RN INFORMED HER PATIENT PLANNING TO GO AMA. PHYSICIAN TOLD PATIENT HE IS A GROWN MAN AND CAN CHOOSE TO LEAVE IF HE WISHES; INFORMED HIM OF POTENTIAL CONSEQUENCES SHOULD HE LEAVE. PATIENT STILL INTENDING TO LEAVE.
--- NOTE | 2018-06-30 14:05 | NUR ---
T/C FROM PATIENTS' DAD, DAMION; DAMION INQUIRED IF PATIENT ALLOWED RN TO SEDATE HIM; RN INFORMED HIM THAT PATIENT ALLOWED RN TO GIVE HIM PO AND IV SEDATION BUT IS STILL PLANNING TO LEAVE. SIGNED RELEASE FORM AND IS DRESSED; AWAITING RN TO REMOVE IV. DAMION WONDERED IF RN WOULD TRANSFER HIS PHONE CALL OVER TO PATIENTS' ROOM; DONE.
--- NOTE | 2018-06-30 14:10 | NUR ---
PATIENT'S MOTHER CALLED TO INFORM RN THAT PATIENT TO BE SEEN AT 14:30, TOMORROW, AT [facility] (INPATIENT) [facility]; PARENTS TO TAKE PATIENT. RN INFORMED RE: SPEAKING TO DAMION AND INFORMING HIM THAT PATIENT GOING AMA, AGAIN. PARENTS FRUSTRATED WITH PATIENT BUT STILL WILLING TO COME UP FROM [place] TOMORROW AND LOCATE PATIENT AND DRIVE HIM TO [facility] ([facility]) TOMOOROW FOR 2:30PM APPT.
--- NOTE | 2018-06-30 14:17 | NUR ---
PATIENT AMA AFTER IV DC'D. BELONGINGS SENT WITH PATIENT; PATIENT DRESSED HIMSELF. RN ESCORTED PATIENT TO [facility], OUTSIDE HOSPITALS' MAIN ENTRANCE. GIRLFRIEND SUPPOSEDLY TO PICK PATIENT UP AT HOSPITAL; DRIVING FROM [email or web address]
== END 2018-06-30 14:07 | disposition left against medical advice (07) | DRG 894 ==
LOC: ER 22:16 → ICUE 06-30 00:43
PROVIDERS: ADMIT Hospitalist
DX: F11.10 Opioid abuse, uncomplicated (principal); F15.11 Other stimulant abuse, in remission; F12.10 Cannabis abuse, uncomplicated; F17.210 Nicotine dependence, cigarettes, uncomplicated; F43.10 Post-traumatic stress disorder, unspecified; F41.1 Generalized anxiety disorder; F10.20 Alcohol dependence, uncomplicated
CPT/HCPCS: 36415; 99285; J2060; J2405

== ENCOUNTER 2018-06-30 18:06 | Inpatient (IN) | payer OTHER ==
[~2018-06-30] VITALS: Ht 177.8 cm; Wt 92.4 kg
[~2018-06-30 18:06] MED LIST changes: +CITA10S; +MULTIVITAMIN W1 EACH PO
[2018-06-30 19:06] LABS: PCO2 Arterial 24.4 mmHg (35-45); PO2 Arterial 151 mmHg (80-100); pH Blood Arterial 7.42 (7.35-7.45)
[2018-06-30 19:07] LABS: BASOPHILS ABSOLUTE AUTO 0.17 K/mm3 (0.00-0.23); BASOPHILS PERCENT AUTO 1 % (0-2); EOSINOPHILS ABSOLUTE AUTO 0.16 K/mm3 (0.00-0.68); EOSINOPHILS PERCENT AUTO 1 % (0-6); Hematocrit 44.2 % (37.0-53.0); Hemoglobin 14.7 g/dL (13.5-17.5); Mean Corpuscular HGB 32.7 pg (26.0-34.0); Mean Corpuscular HGB Conc 33.3 g/dL (31.5-36.5); Mean Corpuscular Volume 98 fL (80-100); Mean Platelet Volume 9.9 fL (9.1-12.4); NRBC ABSOLUTE 0.03 K/mm3 (0.00-0.02); NRBC Auto 0.1 /100 WBC (0.0-0.2); Platelet Count 537 K/mm3 (150-400); RDW Coefficient Variation 13.4 % (11.7-14.2); RDW Standard Deviation 48.8 fL (35.1-46.3)
[2018-06-30 19:09] LABS: IMMATURE GRAN ABSOLUTE AUTO 2.55 K/mm3 (0.00-0.10); IMMATURE GRAN PERCENT AUTO 9 % (0-1); LYMPHOCYTES ABSOLUTE AUTO 5.29 K/mm3 (0.84-5.20); LYMPHOCYTES PERCENT AUTO 20 % (21-46); MONOCYTES ABSOLUTE AUTO 0.23 K/mm3 (0.16-1.47); MONOCYTES PERCENT AUTO 1 % (4-13); NEUTROPHILS PERCENT AUTO 69 % (41-73)
[2018-06-30 19:22] LABS: Source, Urine Catheter
[2018-06-30 19:24] LABS: Appearance, Urine Clear (Clear); Bilirubin, Urine Neg (Neg); Blood, Urine 3+ (Neg); Color, Urine Yellow (P-Yellow); Glucose Qualitative, Urine 1+ (Neg); Ketones, Urine 1+ (Neg); Leukocyte Esterase, Urine Neg (Neg); Nitrite, Urine Neg (Neg); Protein, Urine 3+ (Neg); Specific Gravity, Urine 1.015 (1.003-1.022); Urobilinogen, Urine NORM (Normal)
[2018-06-30 19:25] LABS: BAND PERCENT MAN 4 % (0-8); BASOPHILS PERCENT MAN 0 % (0-2); EOSINOPHILS ABSOLUTE MAN 0.27 K/mm3 (0.00-0.68); EOSINOPHILS PERCENT MAN 1 % (0-6); LYMPHOCYTES ABSOLUTE MAN 3.78 K/mm3 (0.84-5.20); LYMPHOCYTES PERCENT MAN 14 % (21-46); METAMYELOCYTE ABSOLUTE MAN 0.81 K/mm3 (0.00-0.00); METAMYELOCYTE PERCENT MAN 3 % (0-0); MONOCYTES ABSOLUTE MAN 0.54 K/mm3 (0.16-1.47); MONOCYTES PERCENT MAN 2 % (4-13); SEG NEUTROPHILS PERCENT MAN 76 % (41-73); TOTAL CELLS COUNTED 100
[2018-06-30 19:35] LABS: Alanine Aminotransfer (ALT/SGP 890 U/L (12-78); Alk Phos 124 U/L (50-136); Anion Gap 17 mmol/L (6-16); Aspartate Aminotrans (AST/SGOT 716 U/L (12-37); Bilirubin, Total 0.5 mg/dL (0.1-1.0); Blood Urea Nitrogen 9 mg/dL (8-24); Bun/Creatinine Ratio 8.7 (12.0-20.0); CO2, Blood 18 mmol/L (21-32); Calcium, Blood 8.8 mg/dL (8.5-10.1); Chloride, Blood 105 mmol/L (98-108); Creatinine, Blood 1.03 mg/dL (0.60-1.20); Globulin, Blood 4.2 g/dL (2.2-4.0); Glomerular Filtration Rate >60 (60-); Glucose, Blood 216 mg/dL (70-99); Magnesium, Blood 2.4 mg/dL (1.6-2.4); Sodium, Blood 140 mmol/L (136-145); Total Protein, Blood 8.2 g/dL (6.4-8.2); Troponin I 0.022 ng/mL (0.000-0.040)
[2018-06-30 19:36] LABS: Ethanol (Alcohol), Blood, Med <3 mg/dL
[2018-06-30 19:37] LABS: Squamous Epithelial Cells Not Seen /hpf (Few); White Blood Cells, Urine 0-2 /hpf (0-5)
[2018-06-30 19:38] LABS: Amorphous Light (0-Heavy); Bacteria Few /hpf; Spermatozoa Few /hpf
[2018-06-30 19:39] LABS: U Amphetamine Screen Not Detected; U Barbituate Screen Not Detected; U Benzodiazapine Screen DETECTED; U Buprenorphine Screen Not Detected; U Cannabinoids Screen Not Detected; U Cocaine Screen Not Detected; U Methadone Screen Not Detected; U Methamphetamine Screen Not Detected; U Opiates Screen DETECTED; U Oxycodone Screen Not Detected; U Phencyclidine Screen Not Detected; U Propoxyphene Screen Not Detected
--- NOTE | 2018-06-30 21:10 | NUR ---
CALL TO DR LAGOS DR UPDATED ON PT ARRIVAL/CONSULT. HAD PREVIOUSLY CALLED DR PALAFOX D/T PT HYPERTENSION AND RR >5 WELL INTERVENTIONS COMPLETED PRIOR TO CALL TO DR LAGOS (PROPOFOL STARTED PRIOR TO CALL, 20MG HYDRALAZINE AND 2MG ATIVAN). DR REVIEWED CHART WITH LABS, AND ORDERS FOR ADDITIONAL SEDATION, HEAD CT AND REPEAT LABS AT 2200. DR REQUESTED TO BE CALLED WITH REPEAT 2000 LABS.
[2018-06-30 22:41] LABS: Alanine Aminotransfer (ALT/SGP 875 U/L (12-78); Albumin, Blood 3.6 g/dL (3.4-5.0); Albumin/Globulin Ratio 0.9 (0.8-1.8); Alk Phos 113 U/L (50-136); Anion Gap 14 mmol/L (6-16); Aspartate Aminotrans (AST/SGOT 567 U/L (12-37); Bilirubin, Total 0.6 mg/dL (0.1-1.0); Blood Urea Nitrogen 16 mg/dL (8-24); Bun/Creatinine Ratio 15.1 (12.0-20.0); CO2, Blood 19 mmol/L (21-32); Calcium, Blood 8.2 mg/dL (8.5-10.1); Chloride, Blood 106 mmol/L (98-108); Creatinine, Blood 1.06 mg/dL (0.60-1.20); Globulin, Blood 3.9 g/dL (2.2-4.0); Glomerular Filtration Rate >60 (60-); Glucose, Blood 306 mg/dL (70-99); Potassium, Blood 3.8 mmol/L (3.5-5.5); Sodium, Blood 139 mmol/L (136-145); Total Protein, Blood 7.5 g/dL (6.4-8.2)
--- NOTE | 2018-06-30 23:04 | NUR ---
UPDATE TO DR LAGOS PER HIS REQUEST, UPDATED ON REPEAT LABS, AND CONTINUED RR IN THE 50'S. UPDATED ON PLAN TO GO TO CT ONCE THEY ARE AVAILABLE. NO ADDTIONAL ORDERS.
--- NOTE | 2018-06-30 23:59 | NUR ---
BACK FROM CT LEFT ICU AT [address] SCAN, AND BACK AT 2355 WITH NO COMPLICATIONS.
--- NOTE | 2018-07-01 00:01 | NUR ---
ADMIT PT ARRIVES TO ICU FROM ER AT 2100 ON VENTILATOR SIMV 14/500/5/35% PS 7. PT IS UNRESPONSIVE TO PAIN AND ANY NOXIOUS STIMULI. NO GAG, CORNEAL, OR BABINSKI. PUPILS ARE 3/3 AND NOT REACTIVE TO LIGHT. RIGHT PUPIL IS DEVIATED UPWARD AND LEFT PUPIL IS DEVIATED TOWARDS THE UPPERLEFT. PT IS HYPERTENSIVE WITH A SBP <220 AND TACHYPNIC WITH A RR IN THE 50s. PT HAS A LOW GRADE FEVER WITH 99.0F. PT HAS INTRAOSSEOUS IN LEFT METZ. 20G IN THE RIGHT AXILLARY AREA, AND A 18G IN THE RIGHT UPPERARM. NOTHING INFUSING AT THIS TIME.
[2018-07-01 03:46] LABS: BASOPHILS PERCENT AUTO 0 % (0-2); EOSINOPHILS PERCENT AUTO 0 % (0-6); Hematocrit 42.4 % (37.0-53.0); Hemoglobin 14.2 g/dL (13.5-17.5); IMMATURE GRAN ABSOLUTE AUTO 0.85 K/mm3 (0.00-0.10); IMMATURE GRAN PERCENT AUTO 2 % (0-1); LYMPHOCYTES ABSOLUTE AUTO 1.23 K/mm3 (0.84-5.20); LYMPHOCYTES PERCENT AUTO 3 % (21-46); MONOCYTES ABSOLUTE AUTO 0.84 K/mm3 (0.16-1.47); MONOCYTES PERCENT AUTO 2 % (4-13); Mean Corpuscular HGB 32.2 pg (26.0-34.0); Mean Corpuscular HGB Conc 33.5 g/dL (31.5-36.5); Mean Corpuscular Volume 96 fL (80-100); Mean Platelet Volume 9.5 fL (9.1-12.4); NEUTROPHILS ABSOLUTE AUTO 33.16 K/mm3 (1.96-9.15); NEUTROPHILS PERCENT AUTO 92 % (41-73); Platelet Count 555 K/mm3 (150-400); RDW Coefficient Variation 13.5 % (11.7-14.2); RDW Standard Deviation 48.4 fL (35.1-46.3); Red Blood Cell Count 4.41 M/mm3 (4.30-5.90); White Blood Cell Count 36.18 K/mm3 (4.00-11.30)
[2018-07-01 04:00] LABS: Anion Gap 10 mmol/L (6-16); Blood Urea Nitrogen 18 mg/dL (8-24); Bun/Creatinine Ratio 19.8 (12.0-20.0); CO2, Blood 23 mmol/L (21-32); Calcium, Blood 8.7 mg/dL (8.5-10.1); Chloride, Blood 108 mmol/L (98-108); Creatinine, Blood 0.91 mg/dL (0.60-1.20); Glomerular Filtration Rate >60 (60-); Glucose, Blood 178 mg/dL (70-99); Magnesium, Blood 2.2 mg/dL (1.6-2.4); Phosphorus, Blood 1.9 mg/dL (2.5-4.9); Potassium, Blood 3.8 mmol/L (3.5-5.5); Sodium, Blood 141 mmol/L (136-145)
[2018-07-01 05:23] LABS: PCO2 Arterial 34.1 mmHg (35-45); PO2 Arterial 84.7 mmHg (80-100); pH Blood Arterial 7.47 (7.35-7.45)
--- NOTE | 2018-07-01 06:37 | NUR ---
SHIFT SUMMARY PT REMAINS INTUBATED ON VENT SPONT PS 7/5, 30% WITH VT 350-450ML. CURRENT SEDATION IS PROPOFOL 55MCG/KG/MIN WITH PRN ATIVAN+FENTANYL Q1H. LR INFUSING AT 125ML/HR. PT DOES NOT RESPOND TO PAIN OR ANY NOXIOUS STIMULI, AND MAKES NO PURPOSEFUL MOVEMENT. PUPILS ARE 3/3, NO REACTION TO LIGHT; GAZE UNEQUAL WITH RIGHT PUPIL POINTING UPWARDS, AND LEFT PUPIL POINTING TOWARDS THE LEFT. DR. MONTOYA UPDATED WITH AM LABS AWAITING KPHOS FROM PHARMACY.
--- NOTE | 2018-07-01 09:44 | NUR ---
FAMILY IN ROOM. UPDATED ON PATIENT. DR. LAGOS INFORMED THAT PATIENT'S PARENTS WOULD LIKE TO SPEAK WITH HIM.
--- NOTE | 2018-07-01 09:47 | NUR ---
INITIAL ASSESSMENT PATIENT IS INTUBATED AND ON SEDATION WITH FAMILY AT THE BEDSIDE. PATIENT IS AFEBRILE. LEFT PUPIL DEVIATED SLIGHTLY UP AND TO THE LEFT, RIGHT PUPIL DEVIATED UPWARDS SLIGHTLY TO THE RIGHT. PATIENT HAS RECEIVED PRN FENTANYL AND ATIVAN FOR RESPIRATIONS IN THE HIGH 30S-LOW 40S. VENTILATOR SETTINGS SPONTANEOUS PS 7/5, 30%, TV 350-450, PEEP 5. PATIENT IS SINUS RHYTHM/SINUS TACH WITH HR IN THE 90S-LOW 100S. BP IS STABLE AT THIS TIME. PATIENT HAS OG IN PLACE TO LIS WITH COFFEE GROUND DRAINAGE. RECEIVED REPORT THAT PATIENT HAD BM IN ER YESTERDAY. PATIENT HAS BLANKENSHIP IN PLACE DRAINING YELLOW URINE WITH SEDIMENT. PATIENT HAS A BRUISE ON HIS FOREHEAD AND RIGHT LATTER-DAY. PROPOFOL 55 MCG/KG/MIN. LR IS 125 ML/HR. NS TKO. BED LOW. CALL LIGHT IN REACH. WILL CONTINUE TO MONITOR.
--- NOTE | 2018-07-01 10:41 | NUR ---
DR. LAGOS AWARE OF RR IN HIGH 30S TO LOW 40S. STATES TO CONTINUE CARE. SPOKE WITH PATIENT'S PARENTS.
--- NOTE | 2018-07-01 12:31 | NUR ---
PATIENT IS INTUBATED AND ON SEDATION. PATIENT IS AFEBRILE. SEDATION VACATION INITIATED AND PATIENT REMAINS UNRESPONSIVE WITH RESPIRATIONS IN THE HIGH 40S. PATIENT PLACED BACK ON PROPOFOL 20 MCG/KG/MIN. PATIENT REMAINS SATTING 90% OR GREATER ON CURRENT VENT SETTINGS. HR IN THE 90S. BP STABLE. NO OTHER ACUTE CHANGES TO NOTE AT THIS TIME. WILL CONTINUE TO MONITOR.
--- NOTE | 2018-07-01 12:32 | NUR ---
TRANSPLANT RESTROOMS OR LOUNGES MAID HERE TO ASSESS PATIENT AND PATIENT CHART.
--- NOTE | 2018-07-01 12:46 | NUR ---
Echocardiogram completed.
--- NOTE | 2018-07-01 15:44 | NUR ---
DR. LAGOS CALLED AND NOTIFIED THAT PATIENT'S RR REMAINS IN THE HIGH 40S TO 50 WITH PROPOFOL ON AND PRN FENTANYL AND ATIVAN GIVEN, WELL IF PROPOFOL IS ON STANDBY AND NO PRNS ARE GIVEN. DR. LAGOS ALSO INFORMED OF PATIENT'S MINIMAL URINE OUTPUT DURING THIS SHIFT. NO ORDERS RECEIVED AT THIS TIME. DR. LAGOS STATED THAT HE IS OKAY WITH RR UP TO 55. WILL CONTINUE TO MONITOR.
--- NOTE | 2018-07-01 16:12 | NUR ---
PATIENT IS INTUBATED ON NO SEDATION AT THIS TIME AND REMAINS UNRESPONSIVE. PATIENT IS AFEBRILE. PATIENT RR IS IN THE 50S. PATIENT IS SATTING 90% OR GREATER ON CURRENT VENT SETTINGS SPONTANEOUS PS 7, PEEP 5, FIO2 30%. PATIENT IS NSR/SINUS TACH WITH HR IN THE 90S-LOW 100S. SBP IN 170S. PATIENT HAS MILD DISTENTION WITH A SOFT ABDOMEN. OG IS IN PLACE WITH VHP INFUSING AT GOAL RATE OF 35 ML/HR WITH A 30 ML FLUSH EVERY 4 HOURS. RESIDUAL OF 5 ML REINSTILLED. BLANKENSHIP IN PLACE DRAINING MINIMAL YELLOW URINE WITH SEDIMENT. PATIENT HAS BEEN DIAPHORETIC THROUGHOUT THE SHIFT TODAY. PROPOFOL IS ON STANDBY AT THIS TIME. LR 125 ML/HR. NO OTHER ACUTE CHANGES TO NOTE AT THIS TIME. WILL CONTINUE TO MONITOR.
--- NOTE | 2018-07-01 18:27 | NUR ---
SHIFT SUMMARY PATIENT IS INTUBATED AND ON SEDATION. PATIENT HAS A TEMPERATURE OF 99.3 DEGREES FAHRENHEIT. PATIENT HAS NO EYE MOVEMENT. BILAT EYES ARE DEVIATED OUTWARDS SLIGHTLY. PATIENT IS SATTING 90% OR GREATER ON CURRENT VENT SETTINGS: SPONTANEOUS PS 7, FIO2 30%, PEEP 5. PATIENT RR IN THE 50S-60S. SINUS TACH WITH HR IN THE 110S TO 120S. SBP 170S. ADMINISTERED PRN HYDRALAZINE, LABETALOL, ATIVAN AND FENTANYL. PATIENT HAS MILD DISTENTION IN THE ABDOMEN. PATIENT HAS OG IN PLACE WITH VHP INFUSING AT GOAL RATE OF 35 ML/HR WITH 30 ML FLUSH EVERY 4 HOURS. RESIDUALS 5 ML REINSTILLED. BLANKENSHIP IN PLACE DRIANING MINIMAL YELLOW URINE WITH SEDIMENT. PATIENT HAS BEEN DIAPHORETIC OFF AND ON THROUGHOUT THE SHIFT TODAY. FAN WAS PLACED AT BEDSIDE TO ASSIST WITH THIS. PROPOFOL 55 MCG/KG/MIN. PRECEDEX 0.6 MCG/KG/HR. LR 125 ML/HR. NO OTHER ACUTE CHANGES TO NOTE AT THIS TIME. WILL CONTINUE TO MONITOR.
--- NOTE | 2018-07-01 18:41 | NUR ---
DR. LAGOS IN TO SEE PATIENT- CHANGED SETTINGS TO AC 14, TV 500, PEEP 5, FIO2 AT 30%. RR NOW CONTROLLED IN THE 30S. DR. LAGOS STATED TO GO AHEAD AND PLACE PRECEDEX ON STANDBY AND SEE HOW PATIENT DOES. WILL CONTINUE TO MONITOR.
--- NOTE | 2018-07-01 19:25 | NUR ---
ASSUMED CARE OF PT AT 1915. REPORT RECEIVED AT BEDSIDE. PT PRESENTS IN BED SEDATED. VENTED AC 14, Tv 500, FIO2 30 %, PEEP 5. SETTINGS CHECKED AND VERIFIED. DRIPS VERIFIED WITH OFFGOING RN. WILL REVIEW CHART AND PLAN OF CARE FOR THIS PT.
--- NOTE | 2018-07-01 23:30 | NUR ---
PT'S TEMPERATURE CONTINUES TO ELEVALTE. REMOVED GOWN, AND PULLED SHEETS BACK. WILL CONTINUE TO MONITOR. PT HAS EPISODE WHEREAS HIS RESPIRATIONS INCREASED TO 50-60'S BBP. HEARTRATE INCREASES TO 140'S. MEDICATED PT WITH 100MCG'S FENTANYL, AND 2 MG ATIVAN. SLOWLY THIS RESOLVED ITSELF BACK TO BASELINE. WILL CONTINUE TO MONITOR PT.
--- NOTE | 2018-07-02 03:00 | NUR ---
MEDICATED PT WITH 650 MG TYLENOL PER OGT FOR TEMP THAT REACHED 101.6. PENDING RESULTS. HAVE MEDICATED PT WITH HYDRALAZINE AND LABATELOL PRN FOR HYPERTNSION. MODERATE RESULTS FROM THIS. PT HAS HAD COPIOUS ORAL AND RIGHT NASAL SECRETIONS. SUCTIONED BOTH. FREQUENT CHECKS FOR NEED FOR SUCTIONING. WILL MEDICATE PT WITH FENTANYL AND WITH ATIVAN. WILL CONTINUE TO MONITOR PT.
[2018-07-02 03:29] LABS: BASOPHILS ABSOLUTE AUTO 0.07 K/mm3 (0.00-0.23); BASOPHILS PERCENT AUTO 0 % (0-2); EOSINOPHILS ABSOLUTE AUTO 0.02 K/mm3 (0.00-0.68); EOSINOPHILS PERCENT AUTO 0 % (0-6); Hematocrit 39.7 % (37.0-53.0); Hemoglobin 13.5 g/dL (13.5-17.5); IMMATURE GRAN PERCENT AUTO 1 % (0-1); LYMPHOCYTES ABSOLUTE AUTO 1.82 K/mm3 (0.84-5.20); LYMPHOCYTES PERCENT AUTO 6 % (21-46); MONOCYTES ABSOLUTE AUTO 1.37 K/mm3 (0.16-1.47); MONOCYTES PERCENT AUTO 4 % (4-13); Mean Corpuscular HGB 32.5 pg (26.0-34.0); Mean Corpuscular Volume 96 fL (80-100); Mean Platelet Volume 9.8 fL (9.1-12.4); NEUTROPHILS ABSOLUTE AUTO 28.98 K/mm3 (1.96-9.15); NEUTROPHILS PERCENT AUTO 89 % (41-73); Platelet Count 448 K/mm3 (150-400); RDW Coefficient Variation 13.7 % (11.7-14.2); RDW Standard Deviation 48.9 fL (35.1-46.3); Red Blood Cell Count 4.15 M/mm3 (4.30-5.90); White Blood Cell Count 32.56 K/mm3 (4.00-11.30)
[2018-07-02 03:55] LABS: Alanine Aminotransfer (ALT/SGP 403 U/L (12-78); Albumin, Blood 3.3 g/dL (3.4-5.0); Albumin/Globulin Ratio 0.9 (0.8-1.8); Alk Phos 86 U/L (50-136); Anion Gap 7 mmol/L (6-16); Aspartate Aminotrans (AST/SGOT 95 U/L (12-37); Bilirubin, Total 0.4 mg/dL (0.1-1.0); Blood Urea Nitrogen 10 mg/dL (8-24); Bun/Creatinine Ratio 16.7 (12.0-20.0); CO2, Blood 23 mmol/L (21-32); Calcium, Blood 8.2 mg/dL (8.5-10.1); Chloride, Blood 103 mmol/L (98-108); Globulin, Blood 3.5 g/dL (2.2-4.0); Glomerular Filtration Rate >60 (60-); Glucose, Blood 166 mg/dL (70-99); Magnesium, Blood 1.9 mg/dL (1.6-2.4); Potassium, Blood 3.6 mmol/L (3.5-5.5); Sodium, Blood 133 mmol/L (136-145); Total Protein, Blood 6.8 g/dL (6.4-8.2)
[2018-07-02 04:01] LABS: Troponin I 0.547 ng/mL (0.000-0.040)
--- NOTE | 2018-07-02 05:39 | NUR ---
PT PLACED TO SEDATION VACATION. HAVE BEEN MEDICATED AGAIN WITH HYDRALAZINE AND WITH LABATELOL FOR PERSISTENT HYPERTENSION. HAVE ATTEMPTED TO OBTAIN SPUTUM SAMPLE. WAS UNSUCESSFUL. HAVE PLACED PT ON SEDATION VACATION THIS AM. HIS RESPIRATORY RATE AND BLOOD PRESSURE ELEVATED. PT VERY DIAPHORETIC DURING THIS TIME. HAVE PLACED FAN ON PT TO TRY TO BRING PT'S TEMPERATURE DOWN. HAVE PLACED PT BACK TO SEDATION. WILL CONTINUE TO MONITOR PT, AND WILL REPORT OFF TO ONCOMING RN.
[2018-07-02 05:44] LABS: PCO2 Arterial 26.8 mmHg (35-45); PO2 Arterial 102 mmHg (80-100); pH Blood Arterial 7.53 (7.35-7.45)
--- NOTE | 2018-07-02 06:45 | NUR ---
UPDATE: PT HAD APPROX 100 ML URINE IN CATHETER BAG. DID HAVE SLIGHT AMOUNT OF URINE DRAINAGE IN TUBE. FURTHER ASSESSMENT REVEALS THAT PT'S ABDOMEN WAS MORE DISTENDED THAN EARLIER IN SHIFT. OPTED TO DO BLADDER SCAN WHICH REVEALED >999 ML. REMOVED EXISTING CATHETER AND REPLACED THIS WITH 16 LAO TEMP PROBE BLANKENSHIP. PT HAS 1800 ML URINE OUTPUT AFTER THIS. UPDATE GIVEN TO DAYSHIFT RN'S.
--- NOTE | 2018-07-02 07:10 | NUR ---
ASSUMED CARE: REPORT RECEIVED FROM SKIP Laguna RN. ASSUMED CARE OF THIS PT AT APPROX 0700. ON ASSESSMENT, THE PT REMAINS SEDATED/INTUBATED. BILAT SOFT WRIST RESTRAINTS IN PLACE. VENT SETTINGS: AC 14, TV 500, PEEP 5, FiO2 30%. PT SHOWING NO PURPOSEFUL MOVEMENT, PUPILS & EYES ARE FIXED W/ UPWARD GAZE NOTED. HE IS NOT RESPONSIVE TO PAINFUL STIMULI TO ANY EXTREMITY & EXTREMITIES ARE FLACCID. HE CONTINUES TO BE TACHYPNEIC, BREATHING OVER VENT W/ RR 30-35. MONITOR SHOWS SINUS TACH W/ HR 110-120s. BP REMAINS HYPERTENSIVE, MEDS TO BE GIVEN PER EMAR. WILL CONTINUE TO MONITOR & UPDATE NEEDED.
--- NOTE | 2018-07-02 09:14 | NUR ---
GREASE MAN MARITA GOLDEN CALLED IN RE: TO PT. ASKED FOR THE PT'S PRIOR RM # AND PHONE NUMBER TO ROOM, HE IS TRYING TO TRACK DOWN PHONE RECORDS FROM JUST PRIOR TO THE PT LEAVING AMA ON 06/30. CALLED AND PASSED ON THE NEED FOR PHONE RECORDS TO GUILLERMINA CRUZ AND AM AWAITING A RETURN CALL FROM HER ONCE SHE SPEAKS WITH ROSALIO MEJIAS IN REGARDS TO THIS.
--- NOTE | 2018-07-02 09:41 | NUR ---
DR. THAPA: PROVIDER AT BEDSIDE TO SEE PT. NO CHANGES AT THIS TIME. UPDATED HIM ON PT's NEURO STATUS. WILL CONTINUE TO MONITOR & UPDATE NEEDED.
--- NOTE | 2018-07-02 09:47 | NUR ---
ETT ADVANCEMENT: RT AT BEDSIDE TO ADVANCE ETT PER DR. LAGOS. ETT IS NOW 29 CM AT UPPER LIP.
--- NOTE | 2018-07-02 10:53 | NUR ---
DR. LAGOS / SEDATION VACATION: PROVIDER AT BEDSIDE TO ASSESS PT & DISCUSS POC W/ PT's PARENTS. PROGNOSIS IS DISCUSSED. DR. LAGOS STS HE WOULD LIKE TO HAVE A CT HEAD & EEG COMPLETED TOMORROW TO EVAL PT's BRAIN FUNCTION & THEN FURTHER DECISIONS CAN BE MADE. THE PT's PARENTS HAVE EXPRESSED INTEREST IN ORGAN DONATION FOR THEIR SON & BELIEVE THAT HE WOULD WANT TO BE A DONOR. PROPOFOL ON STANDBY FOR SEDATION VACATION. PT SHOWING NO PURPOSEFUL MOVEMENT DURING THAT TIME. HE DOES NOT WITHDRAW TO PAINFUL STIMULUS OR MOVE ANY EXTREMITIES. PUPILS REMAINS FIXED, EYES FIXED W/ UPWARD GAZE. RESTRAINTS HAVE ALSO BEEN REMOVED THIS AM R/T LACK OF PURPOSEFUL MOVEMENT. RR INCREASED TO 40s W/ SEDATION VACATION. SEDATION NOW RESUMED. WILL CONTINUE TO MONITOR & UPDATE NEEDED.
--- NOTE | 2018-07-02 13:54 | NUR ---
BONDERITE OPERATOR HERE TO SET UP FOR EEG. WILL PLACE PROPOFOL ON STANDBY CLOSER TO ACTUAL PROCEURE.
--- NOTE | 2018-07-02 18:25 | NUR ---
SHIFT SUMMARY: PT REMAINS SEDATED/INTUBATED. WRIST RESTRAINTS REMOVED THIS AM CHARTED & PT HAS MADE NO PURPOSEFUL MVMTS. EYES REMAINED W/ FIXED UPWARD GAZE, PUPILS NONREACTIVE. LS ARE CLEAR, DIM IN BASES. VENT SETTINGS UNCHANGED, AC 14, TV 500, PEEP 5 & FIO2 30%. TACHYPNEIC W/ RR 30s. MONITOR SHOWS ST, HR 100-130s. REMAINS HYPERTENSIVE, ESPECIALLY DURING SEDATION VACATIONS, MEDS PER EMAR. ABD IS SOFT TO PALPATION, MILDLY DISTENDED. PT IS NO LONGER TOLERATING TUBE FEEDS W/ INCREASED RESIDUALS NOTED. TF HAS BEEN ON HOLD SINCE APPROX 1200 THIS SHIFT. PT HAVING LOOSE BMs x2 THIS SHIFT. TEMP BLANKENSHIP PATENT/DRAINING DARK YELLOW-GREEN URINE, 1200 ML OUTPUT THIS SHIFT. EEG HAS BEEN COMPLETED, AWAITING RESULTS. THIS RN HAS BEEN IN CONTACT W/ CALI, FROM DONOR LINE NUMEROUS TIMES TODAY W/ UPDATES. WILL CONTINUE TO MONITOR & REPORT OFF TO ONCOMING RN.
--- NOTE | 2018-07-02 20:00 | NUR ---
ASSUMED CARE OF PT AT 1915. REPORT RECEIVED AT BEDSIDE. PT PRESENTS IN BED - VENTED SETTINGS CHECKED AND VERIFIED. DRIPS CHECKED AND VERIFIED WITH OFFGOING RN. PT CURRENTLY ON PROPOFOL FOR SEDATION AT 60 MCG/KG/MIN. PT HAS COPIOUS ORAL SECRETIONS. THESE CLEARED. WILL REVIEW CHART AND PLAN OF CARE FOR THIS PT.
--- NOTE | 2018-07-02 22:30 | NUR ---
CALL MADE TO DR LAGOS. CONVEYED THAT PT CONTINUES WITH HIGH RESIDUALS FROM OGT. ORDER RECEIVED FOR REGLAN. THIS GIVEN TO PT. WILL EVALUATE RESULTS. PT CONTINUES WITH VERY SCAN AMOUNTS OF SECRETIONS RETURNED FROM ETT. LIGHT BORGES IN COLOR. PT TOLERATES TURNS IN BED WITHOUT ANY PURPOSEFUL MOVEMENTS. FULL BEDBATH DONE. HAVE MEDICATED PT WITH HYDRALAZINE ONCE, AND FOLLOWED WITH 30 MG LABATELOL FOR ELEVATED BLOOD PRESSURES. THIS HAS IMPROVED PRESSURES. WILL CONTINUE TO MONITOR PT.
--- NOTE | 2018-07-03 02:30 | NUR ---
PT'S BLOOD PRESSURES BEGINNING TO ELEVATE AGAIN. IS NOT RESPONDING TO BLOOD PRESSURE MEDICATIONS. PT'S RESIDUALS FROM OGT BEGINNING TO DECREASE. HAVE GIVEN TWO DOSES REGLAN. NO PURPOSEFUL MOVEMENTS NOTED FROM PT. EYES FIXED. NO MOVENT OF EYES WHEN HEAD TURNED SIDE TO SIDE. NO RESTRAINTS BEING USED SECONDARY TO PT BEING UNRESPONSIVE. NO VISITORS TO ROOM THIS NIGHT. WILL CONTINUE TO MONITOR PT. WILL TAKE PT TO CAT SCAN WHEN LOGISTICS ARRANGED.
[2018-07-03 04:08] LABS: BASOPHILS ABSOLUTE AUTO 0.05 K/mm3 (0.00-0.23); BASOPHILS PERCENT AUTO 0 % (0-2); EOSINOPHILS ABSOLUTE AUTO 0.09 K/mm3 (0.00-0.68); EOSINOPHILS PERCENT AUTO 0 % (0-6); Hematocrit 39.8 % (37.0-53.0); Hemoglobin 13.6 g/dL (13.5-17.5); IMMATURE GRAN ABSOLUTE AUTO 0.17 K/mm3 (0.00-0.10); IMMATURE GRAN PERCENT AUTO 1 % (0-1); LYMPHOCYTES ABSOLUTE AUTO 1.68 K/mm3 (0.84-5.20); LYMPHOCYTES PERCENT AUTO 8 % (21-46); MONOCYTES ABSOLUTE AUTO 1.21 K/mm3 (0.16-1.47); MONOCYTES PERCENT AUTO 5 % (4-13); Mean Corpuscular HGB 32.7 pg (26.0-34.0); Mean Corpuscular HGB Conc 34.2 g/dL (31.5-36.5); Mean Corpuscular Volume 96 fL (80-100); NEUTROPHILS ABSOLUTE AUTO 19.22 K/mm3 (1.96-9.15); NEUTROPHILS PERCENT AUTO 86 % (41-73); RDW Coefficient Variation 13.6 % (11.7-14.2); RDW Standard Deviation 48.6 fL (35.1-46.3); Red Blood Cell Count 4.16 M/mm3 (4.30-5.90); White Blood Cell Count 22.42 K/mm3 (4.00-11.30)
[2018-07-03 04:14] LABS: Mean Platelet Volume 10.5 fL (9.1-12.4); Platelet Count 372 K/mm3 (150-400)
[2018-07-03 04:21] LABS: Anion Gap 7 mmol/L (6-16); Blood Urea Nitrogen 8 mg/dL (8-24); CO2, Blood 23 mmol/L (21-32); Calcium, Blood 8.3 mg/dL (8.5-10.1); Chloride, Blood 95 mmol/L (98-108); Creatinine, Blood 0.45 mg/dL (0.60-1.20); Glomerular Filtration Rate >60 (60-); Glucose, Blood 150 mg/dL (70-99); Potassium, Blood 4.3 mmol/L (3.5-5.5); Sodium, Blood 125 mmol/L (136-145)
[2018-07-03 05:36] LABS: PCO2 Arterial 26.7 mmHg (35-45); PO2 Arterial 78 mmHg (80-100); pH Blood Arterial 7.51 (7.35-7.45)
--- NOTE | 2018-07-03 06:45 | NUR ---
TOOK PT TO RADIOLOGY FOR CAT SCAN OF HEAD. PT PASSIVE THROUGHOUT PROCEDURE. DOES NOT HAVE ANY PURPOSEFUL MOVEMENT. HAVE CONTINUED PROPOFOL AT 60 MCG'S TO KEEP RESPIRATORY RATE <30 IF ABLE. PT HAS BEEN MEDICATED WITH LABATELOL AND HYDRALAZINE WHEN ABLE SECONDARY TO HYPERTENSION. FOR A PERIOD OF TIME, PT RESPONDED TO LABATELOL WHEREAS HIS HEART RATE REMAINED < 100 AND BLOOD PRESSURES WERE WNL. RESIDUAL CHECKS FROM OGT HAVE PROGRESSED DOWN FROM 230 ML TO 130 ML. THESE VOLUMES REINFUSED. HAVE RESTARTED TUBE FEEDING AT 25 ML PER HOUR. ORAL SECRETIONS HAVE DECREASED THROUGHOUT THE SHIFT. PT DOES AT ONE TIME HAVE RESPIRATORY RATE THAT ELEVATES TO 60 BREATHS PER MINUTE. THIS EVENT WA UNPROMTED. DID MEDICATE PT WITH 100 MG FENTANYL, AND 2 MG ATIVAN. PT'S RESPIRATORY RATE DECREASED TO LOW 30'S. REPORT GIVEN TO ONCOMING RN.
--- NOTE | 2018-07-03 07:15 | NUR ---
REC'D BESIDE REPORT FROM HARPER ADAMS AND AM NOW ASSUMING CARE OF THIS PT.
--- NOTE | 2018-07-03 07:20 | NUR ---
AM ASSESSMENT: PT IS INTUBATED AND SEDATED ON TITRATED PROPOFOL CURRENTLY @ 60MCG/KG/HR. PUPILS WITH A FIXED UPWARD GAZE, 3MM, NON-REACTIVE TO LIGHT. NO RESPONSE WHEN TESTING BABINSKI REFLEX. NO MOVEMENT OF UE'S/LE'S SEEN. NO GAG/SWALLOW. LUNGS ARE CLEAR IN THE UPPER LOBES AND COARSE/DIMINISHED IN THE BILATERAL LOWER LOBES. VENT SETTINGS: AC-14, TV-500, P-5, FI02-30%. 02 SATS >90% ON THESE SETTINGS. HR REGULAR, SR 100-120'S (120'S RANGE WITH STIMULATION/CARE). LR @ 125ML/HR, NS-TKO. ABD SOFT/SLIGHTLY DISTENDED/NO GRIMACE TO PALPATION. BT'S ARE ACTIVE X4 QAUDS. VITAL HIGH PROTEIN TF'S @ 25ML/HR. CONTINUE TO MONITOR FOR TOLERANCE PT HAS HIGH RESIDUALS. HOLDING COLACE THIS AM FOR CONT LOOSE STOOLS. BLANKENSHIP CATHETHER DRAINING CLEAR, YELLOW URINE TO GRAVITY. -FULL CODE STATUS -MONITOR TUBE FEEDINGS AND TOLERANCE -MONITOR AND TX HIGH BP'S WITH PRN MEDS, WILL DISCUSS ADDING SCHEDULED HYPERTENSIVE MED. -CBG'S BID
--- NOTE | 2018-07-03 08:56 | NUR ---
UPDATES: UPDATED PT'S MOM (FIDEL) WITH PT'S CURRENT STATUS. SHE WILL ATTEMPT TO GET IN LATER THIS AM/AFTERNOON. STILL AWAITING RESULTS FROM THE HEAD CT DONE EARLIER THIS AM. CALLED RADIOLOGY TO ASK FOR A READ OUT ON THIS CT. UPDATED DONOR LINE. PHONE NUMBER FOR RONI AT THE DONOR LINE IN ON THE CHART IF THERE ARE ANY NEURO CHANGES.
--- NOTE | 2018-07-03 09:19 | NUR ---
UPDATED DONOR BANK ON CT RESULTS. THEY ARE DISCUSSING A PLAN OF ACTION WITH THE DONOR TEAM AND WILL BE COMING DOWN TO DISCUSS OPTIONS WITH PT'S MOM AND DAD WHEN THEY ARE AT THE BEDSIDE.
--- NOTE | 2018-07-03 11:07 | NUR ---
FAMILY/ORGAN DONATION UPDATE: CALLED FAMILY TO ASK IF THEY WOULD BE BEDSIDE. MOM AND DAD (FIDEL/DAMION) ARE NOT ABLE TO MAKE IT IN TODAY R/T FAMILY COMING IN FROM OUT OF TOWN. INFORMED FIDEL/DAMION THAT DR JALLOH WILL CALL THEM BACK WITH THE RESULTS OF EEG/CT SCAN OF HEAD. RONI FROM ORGAN DONATION TEAM UPDATED ON THIS AND THEY ARE CURRENTLY ON THEIR WAY TO THE FACILITY AND WILL DISCUSS FURTHER OPTIONS WITH FAMILY ONCE THEY ARE HERE AND FAMILY HAVE REC'D RESULTS.
--- NOTE | 2018-07-03 14:28 | NUR ---
SEDATION VACATION: PT IS NOW TREMULOUS IN UE'S. PAM RN WITNESSED PT RAISE SHOULDERS ONCE (POSSIBLY POSTURING)? PT'S RT PUPIL 6MM AND MORE IRREGULAR SHAPED, AND LT IS 5MM. BOTH PUPILS ARE FIXED/NON-REACTIVE. CONTINUED SLIGHT UPWARD GAZE. RR INCREASED TO MID-HIGH 30'S RANGE. HR REMAINS- LOW 100'S AND BP IMPROVED. TEMP HAS COME DOWN TO 98.2, WITHOUT ANY INTERVENTION.
--- NOTE | 2018-07-03 17:00 | NUR ---
[facility] OFFICIALLY ASSUMING CARE OF PT AT 1522. ADMITTING NOTIFIED. NURSING TELEMETRY MONITOR NOTIFIED.
== END 2018-07-03 15:22 | disposition other institution (70) | DRG 917 ==
LOC: ER 18:06 → ICUW 18:58 → ICUE 18:58
PROVIDERS: Emergency Medicine; Internal Medicine Critical Care Medicine; ADMIT Internal Medicine
PROC: 5A1945Z Respiratory Ventilation, 24-96 Consecutive Hours (ICD-10-PCS; principal; 2018-06-30)
PROC: 0BH17EZ Insertion of Endotracheal Airway into Trachea, Via Natural or Artificial Opening (ICD-10-PCS; 2018-06-30)
DX: T40.1X1A Poisoning by heroin, accidental (unintentional), initial encounter (principal); J18.9 Pneumonia, unspecified organism; I46.8 Cardiac arrest due to other underlying condition; I21.A1 Myocardial infarction type 2; G93.6 Cerebral edema; F10.231 Alcohol dependence with withdrawal delirium; G93.1 Anoxic brain damage, not elsewhere classified; E87.3 Alkalosis; F17.210 Nicotine dependence, cigarettes, uncomplicated; Y92.9 Unspecified place or not applicable; R56.9 Unspecified convulsions; R06.82 Tachypnea, not elsewhere classified
CPT/HCPCS: 31500; 31720; 36415; 36600; 51702; 70450; 71045; 80048; 80053; 81001; 82803; 82947; 83735; 84100; 84484; 85025; 87070; 87205; 93005; 93010; 93306; 94002; 94003; 95819; 99291-25; 99292; G0480; J0360; J1650; J2060; J2704; J2765; J3010; J3475; J7030; J7042; J7050; J7060; J7120

== ENCOUNTER 2018-07-03 15:23 | Inpatient (IN) | payer OTHER ==
[~2018-07-03] VITALS: Ht 182.9 cm; Wt 92.0 kg
[2018-07-03 18:49] LABS: BASOPHILS ABSOLUTE AUTO 0.03 K/mm3 (0.00-0.23); BASOPHILS PERCENT AUTO 0 % (0-2); EOSINOPHILS ABSOLUTE AUTO 0.01 K/mm3 (0.00-0.68); EOSINOPHILS PERCENT AUTO 0 % (0-6); Hematocrit 34.7 % (37.0-53.0); Hemoglobin 12.1 g/dL (13.5-17.5); IMMATURE GRAN PERCENT AUTO 1 % (0-1); LYMPHOCYTES ABSOLUTE AUTO 1.21 K/mm3 (0.84-5.20); LYMPHOCYTES PERCENT AUTO 6 % (21-46); MONOCYTES ABSOLUTE AUTO 1.02 K/mm3 (0.16-1.47); MONOCYTES PERCENT AUTO 5 % (4-13); Mean Corpuscular HGB Conc 34.9 g/dL (31.5-36.5); Mean Corpuscular Volume 95 fL (80-100); Mean Platelet Volume 10.1 fL (9.1-12.4); NEUTROPHILS ABSOLUTE AUTO 19.49 K/mm3 (1.96-9.15); NEUTROPHILS PERCENT AUTO 89 % (41-73); Platelet Count 335 K/mm3 (150-400); RDW Coefficient Variation 13.1 % (11.7-14.2); RDW Standard Deviation 45.5 fL (35.1-46.3); Red Blood Cell Count 3.67 M/mm3 (4.30-5.90); White Blood Cell Count 21.96 K/mm3 (4.00-11.30)
[2018-07-03 19:07] LABS: Source, Urine Catheter
[2018-07-03 19:09] LABS: International Normalized Ratio 1.04
[2018-07-03 19:19] LABS: Alanine Aminotransfer (ALT/SGP 152 U/L (12-78); Albumin, Blood 2.7 g/dL (3.4-5.0); Albumin/Globulin Ratio 0.7 (0.8-1.8); Alk Phos 67 U/L (50-136); Amylase, Blood 266 U/L (25-115); Anion Gap 8 mmol/L (6-16); Aspartate Aminotrans (AST/SGOT 45 U/L (12-37); Bilirubin, Direct 0.2 mg/dL (0.0-0.3); Bilirubin, Indirect 0.3 mg/dL (0.1-0.7); Bilirubin, Total 0.5 mg/dL (0.1-1.0); Blood Urea Nitrogen 15 mg/dL (8-24); Bun/Creatinine Ratio 31.2 (12.0-20.0); CO2, Blood 23 mmol/L (21-32); CPK Creatine Kinase 162 U/L (39-308); Chloride, Blood 94 mmol/L (98-108); Creatine Kinase MB Index 2.5 (0.0-4.0); Creatinine, Blood 0.48 mg/dL (0.60-1.20); Globulin, Blood 3.7 g/dL (2.2-4.0); Glomerular Filtration Rate >60 (60-); Glucose, Blood 157 mg/dL (70-99); Magnesium, Blood 1.9 mg/dL (1.6-2.4); Phosphorus, Blood 3.2 mg/dL (2.5-4.9); Potassium, Blood 3.9 mmol/L (3.5-5.5); Sodium, Blood 125 mmol/L (136-145); Total Protein, Blood 6.4 g/dL (6.4-8.2); Troponin I 0.199 ng/mL (0.000-0.040)
--- NOTE | 2018-07-03 19:19 | NUR ---
SHIFT SUMMARY: ASSUMED CARE OF THIS PT AT APPROX 1500. PT REMAINS SEDATED/INTUBATED. [facility] ORGAN DONATION TEAM HAS BEEN WORKING CLOSELY W/ PT & PROVIDING POC. ART LINE TO R RADIAL HAS BEEN PLACED BY DR. JALLOH FOR BETTER BP MONITORING/MANAGEMENT. LABS HAVE BEEN DRAWN PER [facility] TEAM. PROPOFOL CONTINUES FOR SEDATION, TITRATION DOCUMENTED IN FLOWSHEET. VENT SETTINGS AC 14, TV 500, PEEP 5 & FIO2 40% AT THIS TIME. FIO2 INCREASED PER [facility] TEAM REQUEST. MONITOR SHOWS SR-ST, HR 90-120s. BP LABILE. BT x4, TF CONTINUES INFUSING AT GOAL RATE. TEMP BLANKENSHIP W/ DARK YELLOW URINE OUTPUT. SKIN OVERALL CDI. REPORT HAS BEEN GIVEN TO SKIP Laguna RN TO ASSUME CARE.
[2018-07-03 19:24] LABS: Bilirubin, Urine Neg (Neg); Blood, Urine Neg (Neg); Glucose Qualitative, Urine 2+ (Neg); Ketones, Urine 2+ (Neg); Leukocyte Esterase, Urine Neg (Neg); Nitrite, Urine Neg (Neg); Protein, Urine 2+ (Neg); Specific Gravity, Urine 1.025 (1.003-1.022); Urobilinogen, Urine NORM (Normal)
[2018-07-03 19:46] LABS: Appearance, Urine Clear (Clear); Color, Urine Yellow (P-Yellow)
[2018-07-03 19:48] LABS: Bacteria Rare /hpf; Red Blood Cells, Urine Not Seen /hpf (0-2); Squamous Epithelial Cells Rare /hpf (Few); White Blood Cells, Urine 0-2 /hpf (0-5)
--- NOTE | 2018-07-03 20:30 | NUR ---
ASSUMED CARE OF PT AT 1900. REPORT RECEIVED AT BEDSIDE. PT PRESENTS IN BED UNDER DONOR PROTOCOL. HAVE TAKEN PT TO CT AND HAVE RETURNED. HOURLY BLOOD GLUCOSE DONE. SEE FLOWSHEET. PT WITH NO PURPOSEFUL MOVEMENTS. BLOOD PRESSURES NOTED TO BE LABILE. ART LINE IN USE. WILL DO Q 1 HOUR I/0. Q 1 HOUR CBG. WILL COLLECT SPUTUM WHEN ABLE.
--- NOTE | 2018-07-03 22:30 | NUR ---
CONTINUING WITH Q 1 HOUR GLUCOSE CHECKS AND I/O. LABS DRAWN FROM ART LINE. PT REMAINS UNRESPONSIVE. DOES HAVE BODY TREMORS. PT'S TEMPERATURE STARTING TO ELEVATE. WILL CONTINUE TO MONITOR.
[2018-07-04 00:49] LABS: Anion Gap 9 mmol/L (6-16); Blood Urea Nitrogen 15 mg/dL (8-24); Bun/Creatinine Ratio 29.2 (12.0-20.0); CO2, Blood 23 mmol/L (21-32); Calcium, Blood 8.1 mg/dL (8.5-10.1); Chloride, Blood 93 mmol/L (98-108); Creatinine, Blood 0.51 mg/dL (0.60-1.20); Glomerular Filtration Rate >60 (60-); Glucose, Blood 201 mg/dL (70-99); Magnesium, Blood 2.1 mg/dL (1.6-2.4); Phosphorus, Blood 3.2 mg/dL (2.5-4.9); Potassium, Blood 3.8 mmol/L (3.5-5.5); Sodium, Blood 125 mmol/L (136-145)
--- NOTE | 2018-07-04 01:00 | NUR ---
HAVE CHANGED PT TO NORMAL SALINE SECONDARY TO SODIUM LEVELS REMAINING LOW. HAD CALLED DR BLANCHARD. ORDERS FOR LOW SSI. PT'S. SENT SPUTUM SAMPLE TO LAB FOR PROCESSING. PT CONTINUES ON PROPOFOL AT 60 MCG'S/KG/MIN. ANTIBIOTIC CHANGE MADE PER RECOMMENDATION OF DONOR CREW. NO S/S ADVERSE REACTIONS TO NOTE. PT'S BLOOD PRESSURE REMAIN LABILE. SEE VITAL SIGN FLOWSHEET.
--- NOTE | 2018-07-04 06:40 | NUR ---
PT REMAINS VERY LABILE WITH HIS BLOOD PRESSURES. PT DOES HAVE EPISODE WHEREAS HIS BLOOD PRESSURE DROPS TO 59/30. 250 ML BOLUS OF NORMAL SALINE GIVEN. DOPAMINE STARTED AT 6 MCG'S THEN SWITCHED TO LEVOPHED AT 2 MCG'S AND TITRATED UP TO 5 MCG'S. HAVE STARTED 25 GM ALBUMEN PER RECOMMENDATIONS FROM DONOR TEAM. CALL WAS MADE TO DR BLANCHARD WHERE RECEIVED ORDERS FOR ALL INTERVENTIONS. PT HAS HAD ADEQUATE URINE OUTPUT THROUGHOUT THE NIGHT. HAVE MEDICATED PT ONCE WITH 2 UNITS HUMALOG PER SLIDING SCALE INSULINE. PT'S ART LINE HAS SOME OOZING AT SITE WHICH CHANGED DRESSING. FITTINGS TIGHTENED, AND AREA CLEANED. NEW DRESSING OVER SITE. REMAINS WITH GOOD PLETH (WAVEFORM) HAVE BEEN DRAWNING BLOOD SAMPLES FROM ART LINE WITHOUT DIFFICULTIES. PT CURRENTLY OFF LEVOPHED AND IS AT MAINTAINENCE RATE NORMAL SALINE AT 125 PER HOUR. WILL CONTINUE TO MONITOR PT, AND WILL REPORT OFF TO ONCOMING RN.
[2018-07-04 06:49] LABS: International Normalized Ratio 1.04
[2018-07-04 07:03] LABS: Alanine Aminotransfer (ALT/SGP 128 U/L (12-78); Albumin, Blood 2.9 g/dL (3.4-5.0); Albumin/Globulin Ratio 0.7 (0.8-1.8); Alk Phos 71 U/L (50-136); Anion Gap 8 mmol/L (6-16); Aspartate Aminotrans (AST/SGOT 44 U/L (12-37); Bilirubin, Direct 0.2 mg/dL (0.0-0.3); Bilirubin, Indirect 0.2 mg/dL (0.1-0.7); Bilirubin, Total 0.4 mg/dL (0.1-1.0); Blood Urea Nitrogen 15 mg/dL (8-24); Bun/Creatinine Ratio 26.1 (12.0-20.0); CO2, Blood 23 mmol/L (21-32); CPK Creatine Kinase 136 U/L (39-308); Chloride, Blood 94 mmol/L (98-108); Creatine Kinase MB 3.7 ng/mL (0.0-3.6); Creatine Kinase MB Index 2.7 (0.0-4.0); Creatinine, Blood 0.57 mg/dL (0.60-1.20); Globulin, Blood 3.9 g/dL (2.2-4.0); Glomerular Filtration Rate >60 (60-); Glucose, Blood 171 mg/dL (70-99); Magnesium, Blood 2.1 mg/dL (1.6-2.4); Phosphorus, Blood 3.1 mg/dL (2.5-4.9); Potassium, Blood 3.8 mmol/L (3.5-5.5); Sodium, Blood 125 mmol/L (136-145); Total Protein, Blood 6.8 g/dL (6.4-8.2); Troponin I 0.164 ng/mL (0.000-0.040)
[2018-07-04 07:36] LABS: Source, Urine Catheter
--- NOTE | 2018-07-04 07:43 | NUR ---
ASSUMED CARE PT. REMAINS SEDATED AND INTUBATED. PROPOFOL GTT AT 50MCG/KG/MIN AT THIS TIME. VENT SETTINGS ARE AC 14, TV 500, 40%, PEEP 5. PT. CONTINUES TO BE NON RESPONSIVE THIS AM. NO GAG NOTED WITH DEEP SUCTION, AND NO COUGH WITH ETT SUCTIONING. PUPILS DILATED TO APPROX 7MM WITH UPWARD GAZE. PT. LS CLEAR T/O. TEMP BLANKENSHIP DRAINING TO GRAVITY WITH CORE TEMP OF 99.9 THIS AM. FAN PLACED AT BEDSIDE. PT. HAS ART LINE TO RIGHT WRIST. DRESSING CHANGED THIS AM DUE TO OOZING, NO FURTHER OOZING NOTED AT THIS TIME. PRESSORS ON SB AT THIS TIME WITH BP VIA ART LINE HYPERTENSIVE 150S SYSTOLIC AT THIS TIME. HR 120S. DONOR TEAM AT BEDSIDE.
[2018-07-04 07:45] LABS: Appearance, Urine Clear (Clear); Bilirubin, Urine Neg (Neg); Blood, Urine Neg (Neg); Color, Urine Yellow (P-Yellow); Glucose Qualitative, Urine 2+ (Neg); Ketones, Urine 2+ (Neg); Leukocyte Esterase, Urine Neg (Neg); Nitrite, Urine Neg (Neg); Protein, Urine 1+ (Neg); Specific Gravity, Urine 1.015 (1.003-1.022); Urobilinogen, Urine NORM (Normal)
--- NOTE | 2018-07-04 08:25 | NUR ---
07/04/18 0825 Elizabeth Nobles PATIENT INTUBATED AND UNRESPONSIVE. EVALUATION OF LUNGS FOR POTENTIAL ORGAN DONATION. History, Chart, Medications and Allergies reviewed before start of procedure. MONITOR INTACT WITH CONTINUOUS PULSE OXIMETRY AND INTERMITTENT BP. LASER PRINT OPERATOR PRESENT TO MANAGE DRIPS DURING PROCEDURE.
--- NOTE | 2018-07-04 08:33 | NUR ---
DR. JALLOH AT BEDSIDE. DAY SURGERY SET UP FOR BRONCH. PLANS FOR CENTRAL LINE PLACEMENT POST BRONCH.
--- NOTE | 2018-07-04 09:58 | NUR ---
CENTRAL LINE PLACED POST BRONCH PT. HYPERTENSIVE PRIOR TO LINE PLACEMENT PER DR. JALLOH PT MED WITH FENTANYL IV. CENTRAL LINE PLACED TO LEFT IJ VIA STERILE TECHNIQUE BY DR. JALLOH. WILL VERIFY PLACEMENT VIA XRAY
[2018-07-04 10:22] LABS: Lactate Dehydrogenase (Ld),Bld 380 U/L (100-240)
--- NOTE | 2018-07-04 10:37 | NUR ---
LOVENOX ORDERED FOR DVT PROPHYLAXIS
[2018-07-04 12:06] LABS: PO2 Arterial 152 mmHg (80-100); pH Blood Arterial 7.43 (7.35-7.45)
--- NOTE | 2018-07-04 12:11 | NUR ---
UPDATE NO CHANGES AT THIS TIME. CONTINUING WITH LAB DRAWS PER DONOR TEAM. PT. CONTINUES TO BE HYPERTENSIVE. DR. JALLOH AWARE. PER DR. JALLOH GIVE FENTANYL FOR BP SYSTOLIC >180.
[2018-07-04 12:19] LABS: Anion Gap 10 mmol/L (6-16); Blood Urea Nitrogen 13 mg/dL (8-24); Bun/Creatinine Ratio 25.7 (12.0-20.0); CO2, Blood 24 mmol/L (21-32); Calcium, Blood 8.2 mg/dL (8.5-10.1); Chloride, Blood 94 mmol/L (98-108); Creatinine, Blood 0.51 mg/dL (0.60-1.20); Glomerular Filtration Rate >60 (60-); Glucose, Blood 163 mg/dL (70-99); Magnesium, Blood 2.1 mg/dL (1.6-2.4); Phosphorus, Blood 2.1 mg/dL (2.5-4.9); Potassium, Blood 3.3 mmol/L (3.5-5.5); Sodium, Blood 128 mmol/L (136-145)
[2018-07-04 12:21] LABS: BASOPHILS ABSOLUTE AUTO 0.03 K/mm3 (0.00-0.23); BASOPHILS PERCENT AUTO 0 % (0-2); EOSINOPHILS PERCENT AUTO 0 % (0-6); Hematocrit 33.4 % (37.0-53.0); Hemoglobin 11.4 g/dL (13.5-17.5); IMMATURE GRAN ABSOLUTE AUTO 0.19 K/mm3 (0.00-0.10); IMMATURE GRAN PERCENT AUTO 1 % (0-1); LYMPHOCYTES ABSOLUTE AUTO 1.15 K/mm3 (0.84-5.20); LYMPHOCYTES PERCENT AUTO 6 % (21-46); MONOCYTES ABSOLUTE AUTO 1.26 K/mm3 (0.16-1.47); MONOCYTES PERCENT AUTO 6 % (4-13); Mean Corpuscular HGB 32.2 pg (26.0-34.0); Mean Corpuscular HGB Conc 34.1 g/dL (31.5-36.5); Mean Corpuscular Volume 94 fL (80-100); Mean Platelet Volume 10.2 fL (9.1-12.4); NEUTROPHILS ABSOLUTE AUTO 17.67 K/mm3 (1.96-9.15); NEUTROPHILS PERCENT AUTO 87 % (41-73); Platelet Count 350 K/mm3 (150-400); RDW Standard Deviation 45.3 fL (35.1-46.3); Red Blood Cell Count 3.54 M/mm3 (4.30-5.90)
[2018-07-04 12:41] LABS: PCO2 Arterial 31.7 mmHg (35-45); pH Blood Arterial 7.46 (7.35-7.45)
--- NOTE | 2018-07-04 13:14 | NUR ---
HYPERTENSION PT REMAINS HYPTERTENSIVE WITH SYSTOLIC PRESSURES IN THE 200S. FENTANYL ADMIN WITH NO CHANGE TO BP. PER DR. JALLOH 10MG IV LABETALOL GIVEN. PRESSURE DECREASED TO 180/102 INITIALLY. WILL CONTINUE TO MONITOR.
[2018-07-04 18:15] LABS: Source, Urine Catheter
[2018-07-04 18:19] LABS: BASOPHILS ABSOLUTE AUTO 0.04 K/mm3 (0.00-0.23); BASOPHILS PERCENT AUTO 0 % (0-2); EOSINOPHILS PERCENT AUTO 0 % (0-6); Hematocrit 33.5 % (37.0-53.0); Hemoglobin 11.6 g/dL (13.5-17.5); IMMATURE GRAN ABSOLUTE AUTO 0.21 K/mm3 (0.00-0.10); IMMATURE GRAN PERCENT AUTO 1 % (0-1); LYMPHOCYTES ABSOLUTE AUTO 0.93 K/mm3 (0.84-5.20); LYMPHOCYTES PERCENT AUTO 4 % (21-46); MONOCYTES ABSOLUTE AUTO 1.49 K/mm3 (0.16-1.47); MONOCYTES PERCENT AUTO 6 % (4-13); Mean Corpuscular HGB 32.7 pg (26.0-34.0); Mean Corpuscular HGB Conc 34.6 g/dL (31.5-36.5); Mean Corpuscular Volume 94 fL (80-100); Mean Platelet Volume 10.2 fL (9.1-12.4); NEUTROPHILS ABSOLUTE AUTO 21.56 K/mm3 (1.96-9.15); NEUTROPHILS PERCENT AUTO 89 % (41-73); Platelet Count 324 K/mm3 (150-400); RDW Coefficient Variation 12.7 % (11.7-14.2); RDW Standard Deviation 44.4 fL (35.1-46.3); Red Blood Cell Count 3.55 M/mm3 (4.30-5.90); White Blood Cell Count 24.23 K/mm3 (4.00-11.30)
[2018-07-04 18:21] LABS: Appearance, Urine Clear (Clear); Bilirubin, Urine Neg (Neg); Blood, Urine Neg (Neg); Color, Urine Yellow (P-Yellow); Glucose Qualitative, Urine 4+ (Neg); Ketones, Urine 3+ (Neg); Leukocyte Esterase, Urine Neg (Neg); Nitrite, Urine Neg (Neg); Protein, Urine 1+ (Neg); Specific Gravity, Urine 1.025 (1.003-1.022); Urobilinogen, Urine NORM (Normal)
[2018-07-04 18:34] LABS: International Normalized Ratio 1.05; Prothrombin Time Results 11.1 Sec (9.7-11.5)
--- NOTE | 2018-07-04 18:37 | NUR ---
SHIFT SUMMARY NO ACUTE CHANGES T/O SHIFT. PT. REMAINS UNRESPONSIVE AND INTUBATED AT THIS TIME. CENTRAL LINE PLACED THIS SHIFT. PLANS FOR OR TOMORROW AT 10AM. DR. JALLOH AWARE OF OR TIME. LABS SENT FREQUENTLY T/O SHIFT. DONOR TEAM REMAINS ON STAND BY FOR ANY CHANGES. REPORT TO ONCOMING RN.
[2018-07-04 18:40] LABS: Alanine Aminotransfer (ALT/SGP 95 U/L (12-78); Albumin, Blood 2.9 g/dL (3.4-5.0); Albumin/Globulin Ratio 0.8 (0.8-1.8); Alk Phos 60 U/L (50-136); Anion Gap 8 mmol/L (6-16); Aspartate Aminotrans (AST/SGOT 41 U/L (12-37); Bilirubin, Direct 0.2 mg/dL (0.0-0.3); Bilirubin, Indirect 0.2 mg/dL (0.1-0.7); Bilirubin, Total 0.4 mg/dL (0.1-1.0); Blood Urea Nitrogen 10 mg/dL (8-24); Bun/Creatinine Ratio 20.3 (12.0-20.0); CO2, Blood 25 mmol/L (21-32); CPK Creatine Kinase 116 U/L (39-308); Chloride, Blood 95 mmol/L (98-108); Creatine Kinase MB 4.1 ng/mL (0.0-3.6); Creatine Kinase MB Index 3.5 (0.0-4.0); Creatinine, Blood 0.49 mg/dL (0.60-1.20); Globulin, Blood 3.6 g/dL (2.2-4.0); Glomerular Filtration Rate >60 (60-); Glucose, Blood 187 mg/dL (70-99); Magnesium, Blood 1.9 mg/dL (1.6-2.4); Phosphorus, Blood 2.3 mg/dL (2.5-4.9); Potassium, Blood 3.2 mmol/L (3.5-5.5); Sodium, Blood 128 mmol/L (136-145); Total Protein, Blood 6.5 g/dL (6.4-8.2); Troponin I 0.252 ng/mL (0.000-0.040)
[2018-07-04 18:43] LABS: Lactate Dehydrogenase (Ld),Bld 338 U/L (100-240)
--- NOTE | 2018-07-04 19:43 | NUR ---
ASSUMED CARE PT REMAINS ON VENT AC14/500/5/40%. CURRENT GTTS: PROPOFOL 55, WITH ZOSYN AND KPHOS INFUSING. PT IS UNRESPONSIVE TO NOXIOUS STIMULI.
[2018-07-05 00:39] LABS: BASOPHILS ABSOLUTE AUTO 0.02 K/mm3 (0.00-0.23); BASOPHILS PERCENT AUTO 0 % (0-2); EOSINOPHILS PERCENT AUTO 0 % (0-6); Hematocrit 33.1 % (37.0-53.0); Hemoglobin 11.5 g/dL (13.5-17.5); IMMATURE GRAN ABSOLUTE AUTO 0.13 K/mm3 (0.00-0.10); IMMATURE GRAN PERCENT AUTO 1 % (0-1); LYMPHOCYTES ABSOLUTE AUTO 1.11 K/mm3 (0.84-5.20); LYMPHOCYTES PERCENT AUTO 5 % (21-46); MONOCYTES ABSOLUTE AUTO 1.51 K/mm3 (0.16-1.47); MONOCYTES PERCENT AUTO 7 % (4-13); Mean Corpuscular HGB 32.5 pg (26.0-34.0); Mean Corpuscular HGB Conc 34.7 g/dL (31.5-36.5); Mean Corpuscular Volume 94 fL (80-100); Mean Platelet Volume 10.4 fL (9.1-12.4); NEUTROPHILS ABSOLUTE AUTO 18.68 K/mm3 (1.96-9.15); NEUTROPHILS PERCENT AUTO 87 % (41-73); Platelet Count 312 K/mm3 (150-400); RDW Coefficient Variation 12.7 % (11.7-14.2); RDW Standard Deviation 44.2 fL (35.1-46.3); Red Blood Cell Count 3.54 M/mm3 (4.30-5.90); White Blood Cell Count 21.45 K/mm3 (4.00-11.30)
[2018-07-05 00:59] LABS: Anion Gap 9 mmol/L (6-16); Blood Urea Nitrogen 9 mg/dL (8-24); Bun/Creatinine Ratio 18.9 (12.0-20.0); CO2, Blood 25 mmol/L (21-32); Chloride, Blood 97 mmol/L (98-108); Creatinine, Blood 0.48 mg/dL (0.60-1.20); Glomerular Filtration Rate >60 (60-); Glucose, Blood 158 mg/dL (70-99); Magnesium, Blood 2.1 mg/dL (1.6-2.4); Potassium, Blood 2.7 mmol/L (3.5-5.5); Sodium, Blood 131 mmol/L (136-145)
[2018-07-05 06:12] LABS: Source, Urine Catheter
[2018-07-05 06:16] LABS: BASOPHILS ABSOLUTE AUTO 0.03 K/mm3 (0.00-0.23); BASOPHILS PERCENT AUTO 0 % (0-2); EOSINOPHILS ABSOLUTE AUTO 0.03 K/mm3 (0.00-0.68); EOSINOPHILS PERCENT AUTO 0 % (0-6); Hematocrit 34.5 % (37.0-53.0); Hemoglobin 11.8 g/dL (13.5-17.5); IMMATURE GRAN ABSOLUTE AUTO 0.14 K/mm3 (0.00-0.10); IMMATURE GRAN PERCENT AUTO 1 % (0-1); LYMPHOCYTES ABSOLUTE AUTO 1.44 K/mm3 (0.84-5.20); LYMPHOCYTES PERCENT AUTO 7 % (21-46); MONOCYTES ABSOLUTE AUTO 1.73 K/mm3 (0.16-1.47); MONOCYTES PERCENT AUTO 8 % (4-13); Mean Corpuscular HGB 32.3 pg (26.0-34.0); Mean Corpuscular HGB Conc 34.2 g/dL (31.5-36.5); Mean Corpuscular Volume 95 fL (80-100); Mean Platelet Volume 10.2 fL (9.1-12.4); NEUTROPHILS ABSOLUTE AUTO 18.25 K/mm3 (1.96-9.15); NEUTROPHILS PERCENT AUTO 85 % (41-73); Platelet Count 292 K/mm3 (150-400); RDW Coefficient Variation 12.7 % (11.7-14.2); RDW Standard Deviation 44.4 fL (35.1-46.3); Red Blood Cell Count 3.65 M/mm3 (4.30-5.90); White Blood Cell Count 21.62 K/mm3 (4.00-11.30)
--- NOTE | 2018-07-05 06:24 | NUR ---
SHIFT SUMMARY PT REMAINS ON VENT AC14/500/5/40%. CURRENT GTTS: PROPOFOL 55 AND NS 125. PT IS UNRESPONSIVE AND HAS NO NEUROLOGICAL REFLEXES. PT HAD A RELATIVELY UNEVENTFUL NIGHT. POTASSIUM AND PHOSPHORUS WERE GIVEN OVERNIGHT DUE TO LOW VALUES (2.7, 2.0; RESPECTIVELY), TRANSPLANT TEAM AWARE. PT IS TO DONATE ORGANS AROUND 1000 TODAY.
[2018-07-05 06:27] LABS: Bilirubin, Urine Neg (Neg); Blood, Urine Neg (Neg); Glucose Qualitative, Urine 3+ (Neg); Ketones, Urine Neg (Neg); Leukocyte Esterase, Urine Neg (Neg); Nitrite, Urine Neg (Neg); Protein, Urine Neg (Neg); Specific Gravity, Urine 1.015 (1.003-1.022); Urobilinogen, Urine NORM (Normal); pH, Urine 6.5 (5.0-8.0)
[2018-07-05 06:29] LABS: Appearance, Urine Clear (Clear); Color, Urine Yellow (P-Yellow)
[2018-07-05 06:34] LABS: International Normalized Ratio 1.06; Prothrombin Time Results 11.2 Sec (9.7-11.5)
[2018-07-05 06:40] LABS: Alanine Aminotransfer (ALT/SGP 104 U/L (12-78); Albumin, Blood 2.6 g/dL (3.4-5.0); Albumin/Globulin Ratio 0.7 (0.8-1.8); Alk Phos 65 U/L (50-136); Anion Gap 9 mmol/L (6-16); Aspartate Aminotrans (AST/SGOT 53 U/L (12-37); Bilirubin, Direct 0.2 mg/dL (0.0-0.3); Bilirubin, Indirect 0.2 mg/dL (0.1-0.7); Bilirubin, Total 0.4 mg/dL (0.1-1.0); Blood Urea Nitrogen 7 mg/dL (8-24); Bun/Creatinine Ratio 15.8 (12.0-20.0); CO2, Blood 25 mmol/L (21-32); CPK Creatine Kinase 100 U/L (39-308); Calcium, Blood 7.9 mg/dL (8.5-10.1); Chloride, Blood 97 mmol/L (98-108); Creatine Kinase MB 5.8 ng/mL (0.0-3.6); Creatine Kinase MB Index 5.8 (0.0-4.0); Creatinine, Blood 0.44 mg/dL (0.60-1.20); Globulin, Blood 3.8 g/dL (2.2-4.0); Glomerular Filtration Rate >60 (60-); Glucose, Blood 179 mg/dL (70-99); Magnesium, Blood 2.1 mg/dL (1.6-2.4); Phosphorus, Blood 3.3 mg/dL (2.5-4.9); Potassium, Blood 3.4 mmol/L (3.5-5.5); Sodium, Blood 131 mmol/L (136-145); Total Protein, Blood 6.4 g/dL (6.4-8.2); Troponin I 0.348 ng/mL (0.000-0.040)
--- NOTE | 2018-07-05 08:49 | NUR ---
INITIAL ASSESSMENT PATIENT REMAINS INTUBATED AND ON SEDATION. PATIENT IS UNRESPONSIVE AND HAS NO MOVEMENT. PATIENT LEFT EYE IS DEVIATED UPWARDS, THE RIGHT EYE IS FIXED FORWARD. BRISK PUPIL RESPONSE. PATIENT IS AFEBRILE. PATIENT LUNG SOUNDS ARE CLEAR T/O BUT DIMINISHED IN THE LOWER LOBES. PATIENT IS SATTING 90% OR GREATER ON CURRENT VENTILATOR SETTINGS: A/C 14, TV 500, PEEP 5, FIO2 40%. PATIENT IS SINUS TACH W HR IN THE LOW 100S. SBP IS IN THE 150S-160S. PATIENT HAS OG IS IN PLACE AND CLAMPED. PATIENT HAS MILD DISTENTION IN THE ABDOMEN, BUT IT IS SOFT TO PALPATION. BS TYMPANIC AND HYPOACTIVE. TEMP BLANKENSHIP IS IN PLACE AND DRAINING CLEAR YELLOW URINE. PATIENT IS FLUSHED. PATIENT HAS AN ARTERIAL LINE IN THE RIGHT RADIAL, A POWER GLIDE IN THE UPPER LEFT ARM, A LEFT IJ, AND A 20 G PERIPHERAL IV IN THE RIGHT UPPER ARM. PROPOFOL 55 MCG/KG/MIN. NS INFUSING AT 125 ML/HR. ZOSYN IS INFUSING. WILL CONTINUE TO MONITOR.
[2018-07-05 09:55] LABS: PCO2 Arterial 38.7 mmHg (35-45); PO2 Arterial 144 mmHg (80-100); pH Blood Arterial 7.42 (7.35-7.45)
--- NOTE | 2018-07-05 10:45 | NUR ---
IN O.R. WITH PATIENT. RT IN ROOM. TRANSPLANT TEAM IN ROOM. PATIENT REMAINS ON VENTILATOR- SAME SETTINGS. PATIENT REMAINS ON PROPOFOL AT 55 MCG/ KG/ MINUTE. 1102: DR. JALLOH IN ROOM. 1106: TIME OUT 1108: HEPARIN AND MORPHINE GIVEN. 1109: PROPOFOL ON STANDBY. NS DECREASED FROM 125 MLS/ HOUR TO TKO. 1112: PATIENT EXTUBATED BY RT. 1126: CARDIAC TIME OF CALLED BY DR. JALLOH. 1130: TRANPLANT TEAM HAS TAKEN OVER PATIENT CARE.
--- NOTE | 2018-07-05 11:55 | NUR ---
07/05/[address]'S NAME USED ONLY A PLACEHOLDER TO PUT PATIENT ON BIG BOARD.
== END 2018-07-05 11:30 | DRG 917 ==
LOC: ICUE 15:23 → ICUW 15:23 → ICUE 15:24
PROVIDERS: Internal Medicine Pulmonary Disease; ADMIT Internal Medicine
PROC: 03HY32Z Insertion of Monitoring Device into Upper Artery, Percutaneous Approach (ICD-10-PCS; principal; 2018-07-03)
PROC: 02HV33Z Insertion of Infusion Device into Superior Vena Cava, Percutaneous Approach (ICD-10-PCS; 2018-07-03)
PROC: 0BH17EZ Insertion of Endotracheal Airway into Trachea, Via Natural or Artificial Opening (ICD-10-PCS; 2018-07-03)
PROC: 5A1945Z Respiratory Ventilation, 24-96 Consecutive Hours (ICD-10-PCS; 2018-07-03)
DX: T40.1X1A Poisoning by heroin, accidental (unintentional), initial encounter (principal); I21.A1 Myocardial infarction type 2; G93.6 Cerebral edema; G93.1 Anoxic brain damage, not elsewhere classified; I67.82 Cerebral ischemia; E87.1 Hypo-osmolality and hyponatremia; Z51.5 Encounter for palliative care; I46.8 Cardiac arrest due to other underlying condition; F19.10 Other psychoactive substance abuse, uncomplicated; Z52.9 Donor of unspecified organ or tissue; F17.210 Nicotine dependence, cigarettes, uncomplicated; F10.10 Alcohol abuse, uncomplicated
CPT/HCPCS: 31720; 36600; 36620; 71045; 71250; 74176; 80048; 80076; 81001; 81003; 82150; 82550; 82553; 82803; 82947; 83036; 83615; 83690; 83735; 84100; 84484; 85025; 85610; 85730; 86850; 86900; 86901; 87070; 87086; 87205; 93005; 93010; 94003; 94640; C1751; C9113; J0690; J1265; J1644; J1650; J2060; J2270; J2543; J2704; J2930; J3010; J3480; J7030; J7040; J7060; J7120; P9046